=== PATIENT | male | born 1965 | race Caucasian/White ===

== ENCOUNTER 2016-03-29 10:01 | Emergency (ER) | payer MEDICAID ==
[~2016-03-29] VITALS: Ht 177.8 cm; Wt 89.4 kg
[~2016-03-29 10:01] MED LIST: AMITRIPTYLINE25 MG PO; AMOXICILLIN AND1 TA2 PO; ASPIRIN CHILDRE81 MG PO; BACLOFEN20 MG PO; BACTRIM DS 8001 TAB PO; CEPHALEXIN MON500 MG PO; CIPRO 500MG TA500 MG PO; FLAGYL 500MG.500 MG PO; FLEXERIL10 MG PO; GABAPENTIN 600600 MG PO; HEART MED; HEART PILL; HYDROCODONE1 TABLET PO; KEFLEX 500MG.500 MG PO; LORTAB 5/500 501 TAB PO; METOPROLOL25 MG PO; NAPROSYN500 M1 PO; NITROGLYCERIN0.4 MG SL; OMNICEF 300 MG300 MG PO; OXYCODONE15 MG PO; PERCOCET 10 MG1 EACH PO; PERCOCET 325 MG1 TA3 PO; PERCOCET 325 MG1 TA4 PO; PLAVIX75 MG PO; SENNA DOCUSATE1 TAB PO; SIMVASTATIN40 MG PO; SOMA 350MG TAB350 MG PO; TRAZODONE 50MG50 MG PO; ULTRACET 325 MG1 TAB PO; VICODIN 7.5/501 EACH PO; XANAX 1MG TABLET1 MG PO; XANAX1 MG PO
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
--- NOTE | 2016-03-29 11:11 | RADIOLOGY REPORT PS360 ---
KNEE-3 VIEWS-LT HISTORY: Post traumatic pain FALL/INJURY COMPARISON: None FINDINGS: There are moderate osteoarthritic changes involving the medial compartment and patellofemoral joint. Osteophytes are present about the knee joint. No acute fracture or dislocation. No lytic or blastic change. IMPRESSION: 1. No acute fracture. 2. Osteoarthritis
[2016-03-29] MEDS ORDERED: NAPROXEN SODIU500 MG PO (11:21)
[2016-03-29] MEDS ORDERED: WALK1 XX (11:21)
[2016-03-29 11:50] VITALS: BP 112/72
== END 2016-03-29 11:50 | disposition home or self-care (01) ==
LOC: ER 10:01
DX: S86.912A Strain of unspecified muscle(s) and tendon(s) at lower leg level, left leg, initial encounter (principal); I25.10 Atherosclerotic heart disease of native coronary artery without angina pectoris; Z72.0 Tobacco use; W18.2XXA Fall in (into) shower or empty bathtub, initial encounter; Y92.009 Unspecified place in unspecified non-institutional (private) residence as the place of occurrence of the external cause

== ENCOUNTER 2016-08-02 11:23 | Emergency (ER) | payer MEDICAID ==
[~2016-08-02] VITALS: Ht 177.8 cm; Wt 83.9 kg
[~2016-08-02 11:23] MED LIST changes: +NAPROXEN SODIU500 MG PO; +PREDNISONE 20MG20 MG PO; +WALK1 XX
[2016-08-02] MEDS ORDERED: IBUPROFEN800 MG PO (11:45)
[2016-08-02] MEDS ORDERED: FLEXERIL10 MG PO (11:45)
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
[2016-08-02 12:36] VITALS: BP 130/86
--- OUTSIDE RECORDS SUMMARY | 2016-08-09 02:29 | External Medical Summary Rpt ---
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 20 AI AM 02 11 11 D RI 2 1 PH CH AR AR MG MA D CY W TA BL 03 ET 93 8 # 03 93 NA 00 09 09 0 60 30 HU 11 SA Ac BU 59 -0 -0 .0 BB 80 XM ti ME 13 7- 7- 00 AR 43 AN ve TO 67 20 20 D 5 NE 00 11 11 AN DO 1 D IN 50 CU A 0 RR M MG Y PH TA AR BL MA ET CY 52 09 09 0 12 30 HU 11 SA Ac 15 -0 -0 0. BB 80 XM ti 20 7- 7- 00 AR 43 AN ve 21 20 20 0 D 6 40 11 11 AN DO 2 D IN CU A RR M Y PH AR MA CY DI 00 08 08 0 30 30 WI 38 SC Ac AZ 59 -1 -1 .0 LS 13 HO ti EP 15 0- 0- 00 ON 04 LD ve AM 62 20 [address] SHAHID 10 0 UG AN C MG IN C TA BL ET OX 00 08 08 0 90 30 WI 38 SC Ac YC 60 -1 -1 .0 LS 13 HO ti OD 34 0- 0- 00 ON 05 LD ve ON 99 20 20 E [address] AL HC 8 UG AN L C 30 IN C MG TA BL ET ME 29 07 07 0 30 30 WI 37 GO Ac LO 30 -1 -1 .0 LS 84 DO ti XI 00 4- 4- 00 ON 33 FS ve CA 12 20 20 [place] M [address] 15 0 UG AL AN MG IN C TA BL ET DI 00 07 07 0 60 30 WI 37 GO Ac AZ 59 -1 -1 .0 LS 84 DO ti EP 15 4- 4- 00 ON 35 FS ve AM 61 20 20 [place] [address] 0 UG AL MG AN IN TA C BL ET OX 00 07 07 0 12 30 WI 37 GO Ac YC 60 -1 -1 0. LS 84 DO ti OD 34 4- 4- 00 ON 36 FS ve ON 99 20 20 0 [place] E [address] HC 8 UG AL L AN 30 IN C MG TA BL ET IB 53 11 06 5 60 30 EA 19 SA Ac UP 74 -1 -[address] 98 XM ti RO 60 5- 6- 00 SI 94 AN ve FE 46 20 20 DE N 60 10 11 DO 80 5 PH IN 0 AR A MG MA M CY TA BL OF ET CY NT HI AN A OX 00 06 06 90 30 KM 22 GO Ac YC 40 -1 -1 .0 AR 12 DO ti OD 68 4- 4- 00 T 33 FS ve ON 51 20 20 PH 1 KY E 50 11 11 AR HC 1 MA AL L CY AN 15 # MG 48 47 TA BL ET DI 00 06 06 60 30 KM 44 GO Ac AZ 59 -1 -1 .0 AR 47 DO ti EP 15 4- 4- 00 T 53 FS ve AM 62 20 20 PH 7 KY 01 11 11 AR 10 0 MA AL CY AN MG # TA 48 BL 47 ET ME 68 06 06 30 30 KM 68 GO Ac LO 18 -1 -1 .0 AR 20 DO ti XI 00 4- 4- 00 T 04 FS ve CA 50 20 20 PH 6 KY M 20 11 11 AR 15 1 MA AL CY AN MG # TA 48 BL 47 ET OX 10 05 05 12 30 KM 22 WH Ac YC 70 -1 -1 0. AR 12 IT ti OD 20 7- 7- 00 T 11 E ve ON 00 20 20 0 PH 2 GR E 90 11 11 AR EG HC 1 MA OR L CY Y 30 # B MG 48 47 TA BL ET DI 00 05 05 90 30 KM 44 WH Ac AZ 59 -1 -1 .0 AR 47 IT ti EP 15 7 7 00 T 23 E ve AM 62 20 20 PH 7 GR 01 11 11 AR EG 10 0 MA OR CY Y MG # B TA 48 BL 47 ET ME 68 05 05 30 30 KM 68 WH Ac LO 18 -1 -1 .0 AR 19 IT ti XI 00 7 7 T 14 E ve CA 50 20 20 PH 6 GR M 20 11 11 AR EG 15 1 MA OR CY Y MG # B TA 48 BL 47 ET IB 53 11 04 5 60 30 EA 19 SA Ac UP 74 -1 -[address] 98 XM ti RO 60 5 9 00 SI 94 AN ve FE 46 20 20 DE N 60 10 11 DO 80 5 PH IN 0 AR A MG MA M CY TA BL OF ET CY NT HI AN A CY 00 04 04 1 60 20 EA 22 AR Ac CL 37 -1 -[address] 18 NO ti OB 80 9 SI 27 LD ve EN 75 20 20 DE ZA 11 11 11 RI NV 0 PH CH IN AR AR E MA D 10 CY W MG OF TA CY BL NT ET HI AN A OX 00 04 04 0 90 30 HU 11 SA Ac YC 40 -0 -0 .0 BB 69 XM ti OD 68 8 AR 43 AN ve ON 51 20 20 D 8 E 50 11 11 AN DO HC 1 D IN L CU A 15 RR M Y MG PH AR TA MA BL CY ET 00 04 04 0 60 30 HU 11 SA Ac 59 -0 -0 .0 BB 69 XM ti 10 8 8 AR 43 AN ve 82 20 20 D 7 50 11 11 AN DO 1 D IN CU A RR M Y PH AR MA CY ME 68 04 04 5 30 30 HU 11 SA Ac LO 38 -0 -0 .0 BB 69 XM ti XI 20 8 8- 00 AR 43 AN ve CA 05 20 20 D 5 M 10 11 11 AN DO 15 1 D IN CU A MG RR M Y TA PH BL AR ET MA CY AM 00 04 04 0 [address] Ac OX 78 -0 -[address] 01 EP ti IC 12 6 6 SI 80 HE ve IL 61 20 20 DE NS LI 30 11 11 N 5 PH KE 50 AR 0 MA N MG CY C CA OF PS UL CY E NT HI AN A IB 53 11 04 5 60 30 EA 19 SA Ac UP 74 -1 -[address] 98 XM ti RO 60 5- 1- 00 SI 94 AN ve FE 46 20 20 DE N 60 10 11 DO 80 5 PH IN 0 AR A MG MA M CY TA BL OF ET CY NT HI AN A EN 60 03 03 0 12 2 EA 21 GR Ac DO 95 -2 -[address] 88 AY ti CE 10 8- 8- 00 SI 71 ve T 71 20 20 DE RO 10 27 11 11 BE -3 0 PH RT 25 AR B MA MG CY TA OF BL ET CY NT HI AN A 52 03 03 0 90 30 HU 11 SA Ac 15 -1 -1 .0 BB 67 XM ti 20 1- 1- 00 AR 68 AN ve 21 20 20 D 9 40 11 11 AN DO 2 D IN CU A RR M Y PH AR MA CY 00 03 03 0 60 30 HU 11 SA Ac 59 -1 -1 .0 BB 67 XM ti 10 1- 1- 00 AR 69 AN ve 82 20 20 D 0 50 11 11 AN DO 1 D IN CU A RR M Y PH AR MA CY IB 53 11 02 5 60 30 EA 19 SA Ac UP 74 -1 -[address] 98 XM ti RO 60 5- 5- 00 SI 94 AN ve FE 46 20 20 DE N 60 10 11 DO 80 5 PH IN 0 AR A MG MA M CY TA BL OF ET CY NT HI AN A AL 00 02 02 0 90 30 HU 11 SA Ac NV 78 -1 -1 .0 BB 65 XM ti AZ 11 1- 1- 00 AR 66 AN ve OL 07 20 20 D 4 AM 90 11 11 AN DO 1 5 D IN CU A MG RR M Y TA PH BL AR ET MA CY OX 00 01 01 0 90 30 HU 11 SA Ac YC 60 -1 -1 .0 BB 63 XM ti OD 34 4- 4- 00 AR 63 AN ve ON 99 20 20 D 5 E 12 11 11 AN DO HC 1 D IN L CU A 15 RR M Y MG PH AR TA MA BL CY ET AL 00 01 01 0 90 30 HU 11 SA Ac NV 78 -1 -1 .0 BB 63 XM ti AZ 11 4- 4- 00 AR 63 AN ve OL 07 20 20 D 6 AM 90 11 11 AN DO 1 5 D IN CU A MG RR M Y TA PH BL AR ET MA CY IB 53 11 01 5 60 30 EA 19 SA Ac UP 74 -1 -[address] 98 XM ti RO 60 5- 4- 00 SI 94 AN ve FE 46 20 20 DE N 60 10 11 DO 80 5 PH IN 0 AR A MG MA M CY TA BL OF ET CY NT HI AN A ANDERSON 53 12 12 14 7 RI 86 BE Ac LF 74 -1 -1 .0 TE 28 SS ti AM 60 7- 7- 00 33 ON ve ET 27 20 20 AI HO [address] XA 5 PH EP ZO AR HE LE MA N -T CY A MP 03 DS 93 8 TA # BL 03 ET 93 OX 00 12 12 0 90 30 HU 11 SA Ac YC 40 -1 -1 .0 BB 61 XM ti OD 68 0- 0- 00 AR 49 AN ve ON 51 20 20 D 6 E 50 10 10 AN DO HC 1 D IN L CU A 15 RR M Y MG PH AR TA MA BL CY ET OX 53 12 12 24 3 RI 86 AL Ac YC 74 -0 -0 .0 TE 10 LR ti OD 60 5- 5- 00 34 AN ve ON 20 20 20 AI E- 40 10 10 D JR AC 1 PH ET AR CH AM MA AR IN CY LE OP S HE 03 F N 93 10 8 -3 # 25 03 93 CL 63 12 12 21 7 RI 86 BE Ac IN 30 -0 -0 .0 TE 10 SS ti DA 40 5- 5- 00 35 ON ve MY 69 20 20 AI CI [address] N 6 PH EP HC AR HE L MA N 30 CY A 0 MG 03 93 CA 8 PS # UL 03 E 93 ANDERSON 53 11 11 0 14 7 EA 20 SO Ac LF 74 -3 -[address] 19 KA ti AM 60 0- 0- 00 SI 75 N ve ET 27 20 20 DE BA HO 20 10 10 BA XA 5 PH TU ZO AR ND LE MA E -T CY O MP OF DS CY TA NT BL HI ET AN A 00 11 11 0 12 3 EA 20 SO Ac 17 -3 -[address] 19 KA ti 26 0- 0- 00 SI 76 N ve 35 20 20 DE BA 97 10 10 BA 0 PH TU AR ND MA E CY O OF CY NT HI AN A IB 53 11 11 5 60 30 EA 19 SA Ac UP 74 -1 -[address] 98 XM ti RO 60 5- 5- 00 SI 94 AN ve FE 46 20 20 DE N 60 10 10 DO 80 5 PH IN 0 AR A MG MA M CY TA BL OF ET CY NT HI AN A PE 00 11 11 5 60 30 EA 19 SA Ac NT 37 -1 -[address] 98 XM ti OX 80 5- 5- 00 SI 96 AN ve IF 35 20 20 DE YL 70 10 10 DO LI 1 PH IN NE AR A MA M ER CY 40 OF 0 MG CY NT TA HI B AN A AC 00 11 11 0 12 2 EA 19 SO Ac ET 09 -1 -[address] 91 KA ti AM 30 0- 0- 00 SI 39 N ve IN 15 20 20 DE BA OP 00 10 10 BA HE 1 PH TU N- AR ND CO MA E D CY O #3 OF TA BL CY ET NT HI AN A 00 11 11 0 12 4 EA 19 GA Ac 59 -0 -[address] 86 IN ti 10 7- 7- 00 SI 79 EY ve 38 20 20 DE 50 10 10 MT 1 PH CH AR AE MA L CY S OF CY NT HI AN A CE 00 11 11 0 30 10 EA 19 GA Ac PH 09 -0 -[address] 86 IN ti AL 33 7- 7- 00 SI 80 EY ve EX 14 20 20 DE IN 70 10 10 MT 5 PH CH 50 AR AE 0 MA L MG CY S CA OF PS UL CY E NT HI AN A 00 05 05 0 20 5 EA 17 FO Ac 59 -2 -[address] ti 10 3- 3- 00 SI 66 ER ve 34 20 20 DE 90 10 10 JA 1 PH ME AR S MA M CY OF CY NT HI AN A ME 00 05 05 1 60 30 EA 17 CO Ac LO 37 -0 -[address] 46 Y ti XI 81 4- 4- 00 SI 88 SA ve CA 06 20 20 DE MU M 60 10 10 EL 7. 1 PH C 5 AR MG MA CY TA BL OF ET CY NT HI AN A HY 00 05 05 0 30 4 EA [address] 59 -0 -[address] 46 Y ti OC 13 4- 4- 00 SI 89 SA ve OD 20 20 20 DE MU ON 20 10 10 EL -A 1 PH C CE AR TA MA MT CY NO PH OF EN CY 5- NT 32 HI 5 AN A Vital Signs 04-14-2013 17:22 Name Value Interpretat Reference Comment ion Range BP 53 mm[Hg] Diastolic BP Systolic 119 mm[Hg] Heart 65 /min Rate/Pulse O2% 98 % Respiratory 18 /min Rate 04-14-2013 14:13 Name Value Interpretat Reference Comment ion Range BP 75 mm[Hg] Diastolic BP Systolic 120 mm[Hg] Heart 90 /min Rate/Pulse O2% 94 % Respiratory 18 /min Rate 11-14-2012 12:15 Name Value Interpretat Reference Comment ion Range BP 88 mm[Hg] Diastolic BP Systolic 145 mm[Hg] Heart 83 /min Rate/Pulse O2% 98 % Respiratory 20 /min Rate 11-14-2012 12:06 Name Value Interpretat Reference Comment ion Range BP 88 mm[Hg] Diastolic BP Systolic 145 mm[Hg] Heart 80 /min Rate/Pulse O2% 98 % Respiratory 20 /min Rate 11-09-2012 03:00 Name Value Interpretat Reference Comment ion Range BP 68 mm[Hg] Diastolic BP Systolic 109 mm[Hg] Heart 99 /min Rate/Pulse O2% 92 % Respiratory 16 /min Rate 11-09-2012 02:46 Name Value Interpretat Reference Comment ion Range BP 66 mm[Hg] Diastolic BP Systolic 100 mm[Hg] Heart 99 /min Rate/Pulse O2% 92 % Respiratory 16 /min Rate 10-22-2012 22:00 Name Value Interpretat Reference Comment ion Range Body 97.6 [degF] Temperature BP 77 mm[Hg] Diastolic BP Systolic 116 mm[Hg] Heart 91 /min Rate/Pulse Respiratory 18 /min Rate 10-22-2012 07:00 Name Value Interpretat Reference Comment ion Range Body 98.8 [degF] Temperature BP 69 mm[Hg] Diastolic BP Systolic 107 mm[Hg] Heart 80 /min Rate/Pulse O2% 97 % Respiratory 16 /min Rate 10-20-2012 08:13 Name Value Interpretat Reference Comment ion Range Height 180.34 cm Weight 92.080 kg Measured 10-20-2012 06:03 Name Value Interpretat Reference Comment ion Range Body 98.4 [degF] Temperature BP 98 mm[Hg] Diastolic BP Systolic 162 mm[Hg] Heart 78 /min Rate/Pulse O2% 98 % Respiratory 20 /min Rate Weight 00 [oz_av] Measured 07-22-2012 21:10 Name Value Interpretat Reference Comment ion Range Body 98.4 [degF] Temperature BP 82 mm[Hg] Diastolic BP Systolic 116 mm[Hg] Heart 90 /min Rate/Pulse O2% 97 % Respiratory 20 /min Rate Results Labs Lab Lab Date Result Refere Interp Status Commen Order Detail nces retati t Range on COMPREHENSIVE METABOLIC PANEL (04-14-2013 14:10) Glucose 0202-2 114 74-106 complet 014 mg/dL ed Bld-mCn 14:10 c BUN 0202-2 5 mg/dL 7-18 complet Bld-mCn 014 ed c 14:10 Creat 02-02-2 0.8 0.8-1.3 complet SerPl-m 014 mg/dL ed Cnc 14:10 Creat 02-2 159 50-200 complet Cl 014 ML/MIN ed predict 14:10 ed SerPl C-G-vRa te GFR/BSA 02-2 104 Greater complet .pred 014 ML/MIN than ed SerPl 14:10 60 Schwart z-vRate Sodium 02-2 138 136-145 complet SerPl-s 014 mmoL/L ed Cnc 14:10 Potassi 02-2 4.0 3.5-5.1 complet um 014 mmoL/L ed SerPl-s 14:10 Cnc Chlorid 02-2 103 98-107 complet e 014 mmoL/L ed SerPl-s 14:10 Cnc CO2 02-2 29 21.0-32 complet SerPl-s 014 mmoL/L .0 ed Cnc 14:10 Calcium 02-02-2 7.9 8.5-10. complet 014 mg/dL 1 ed SerPl-m 14:10 Cnc Prot 02-02-2 6.9 6.4-8.2 complet SerPl-m 014 gm/dL ed Cnc 14:10 Albumin 02-02-2 3.2 3.4-5.0 complet 014 gm/dL ed SerPl-m 14:10 Cnc Globuli 0202-2 3.7 1.3-3.2 complet n 014 gm/dL ed Ser-mCn 14:10 c Albumin 02-02-2 0.9 UNK 1.1-1.8 complet /Glob 014 ed SerPl-m 14:10 Rto Bilirub 0202-2 0.6 0.2-1.0 complet 014 mg/dL ed SerPl-m 14:10 Cnc AST 02-2 384 U/L 15-37 High complet SerPl-c 014 alert ed Cnc 14:10 ALT 0202-2 745 U/L 12-78 High complet SerPl-c 014 alert ed Cnc 14:10 ALP 02-02-2 170 U/L 50-136 complet SerPl-c 014 ed Cnc 14:10 Ethanol Bld-mCnc (04-14-2013 14:10) Ethanol 02-02-2 0 mg/dL 0-99 complet 014 ed Bld-mCn 14:10 c CBC with AUTO DIFF (04-14-2013 14:10) WBC # 02-02-2 9.4 4.8-10. complet Bld 014 K/MM3 8 ed Auto 14:10 RBC # 02-02-2 4.58 4.6-6.2 complet Bld 014 M/mm3 ed Auto 14:10 Hgb 02-02-2 13.7 14.1-18 complet Bld-mCn 014 g/dL .0 ed c 14:10 Hct Fr 02-02-2 40.4 % 42.0-52 complet Bld 014 .0 ed 14:10 MCV RBC 02-02-2 88.3 fl 82.2-97 complet 014 .8 ed 14:10 MCH RBC 02-02-2 29.9 pg 27-31.2 complet Qn 014 ed Auto 14:10 MEAN 02-02-2 33.9 31.8-35 complet CORPUSC 014 g/dl .4 ed ULAR 14:10 HGB CONC RDW RBC 02-02-2 16.5 % 11.5-17 complet Auto 014 .5 ed 14:10 Platele 02-02-2 201 142-424 complet t Bld 014 K/mm3 ed Ql 14:10 Manual MEAN 02-02-2 7.0 fl 7.4-10. complet PLATELE 014 4 ed T 14:10 VOLUME Granulo 02-02-2 75.5 % 37.0-80 complet cytes 014 .0 ed Fr Bld 14:10 Auto LYMPH % 02-02-2 15.5 % 10-50 complet 014 ed 14:10 Monocyt 02-02-2 5.6 % 1.7-9.3 complet es Fr 014 ed Bld 14:10 Auto Eosinop 02-02-2 3.0 % 0.1-12. complet hil Fr 014 0 ed Bld 14:10 Auto Basophi 02-02-2 0.4 % 0.1-2.0 complet ls Fr 014 ed Bld 14:10 Auto Granulo 02-02-2 7.1 1.3-8.0 complet cytes # 014 K/mm3 ed Bld 14:10 Auto Lymphoc 02-2 1.5 0.7-4.5 complet ytes Fr 014 K/mm3 ed Bld 14:10 Auto Monocyt 02-02-2 0.5 0.1-1.0 complet es # 014 K/mm3 ed Bld 14:10 Auto Eosinop 02-02-2 0.3 0.0-0.4 complet hil # 014 K/mm3 ed Bld 14:10 Auto Basophi 02-2 0.0 0-0.2 complet ls # 014 K/MM3 ed Bld 14:10 Auto COMPREHENSIVE METABOLIC PANEL (11-09-2012 02:10) Glucose 140 74-106 complet 013 mg/dL ed Bld-mCn 02:10 c BUN 7 mg/dL 7-18 complet Bld-mCn 013 ed c 02:10 Creat 1.1 0.8-1.3 complet SerPl-m 013 mg/dL ed Cnc 02:10 ESTIMAT 113 50-200 complet ED 013 ML/MIN ed CREATIN 02:10 INE CLEARAN CE GFR 72 Greater complet (ESTIMA 013 ML/MIN than ed JUICE) 02:10 60 Sodium 144 136-145 complet SerPl-s 013 mmoL/L ed Cnc 02:10 Potassi 3.2 3.5-5.1 complet um 013 mmoL/L ed SerPl-s 02:10 Cnc Chlorid 107 98-107 complet e 013 mmoL/L ed SerPl-s 02:10 Cnc CO2 24 21.0-32 complet SerPl-s 013 mmoL/L .0 ed Cnc 02:10 Calcium 7.8 8.5-10. complet 013 mg/dL 1 ed SerPl-m 02:10 Cnc Prot 8.0 6.4-8.2 complet SerPl-m 013 gm/dL ed Cnc 02:10 Albumin 3.6 3.4-5.0 complet 013 gm/dL ed SerPl-m 02:10 Cnc Globuli 08-30-2 4.4 1.3-3.2 complet n 013 gm/dL ed Ser-mCn 02:10 c Albumin 11-09-2 0.8 UNK 1.1-1.8 complet /Glob 013 ed SerPl-m 02:10 Rto Bilirub 11-09-2 0.3 0.2-1.0 complet 013 mg/dL ed SerPl-m 02:10 Cnc AST 11-09-2 19 U/L 15-37 complet SerPl-c 013 ed Cnc 02:10 ALT 11-09-2 43 U/L 30-65 complet SerPl-c 013 ed Cnc 02:10 ALP 11-09-2 141 U/L 50-136 complet SerPl-c 013 ed Cnc 02:10 Ethanol Bld-mCnc (11-09-2012 02:10) Ethanol 11-09-2 148 0-99 complet 013 mg/dL ed Bld-mCn 02:10 c CBC with AUTO DIFF (11-09-2012 02:10) WBC # 30-2 9.9 4.8-10. complet Bld 013 K/MM3 8 ed Auto 02:10 RBC # 30-2 5.22 4.6-6.2 complet Bld 013 M/mm3 ed Auto 02:10 Hgb 11-09-2 15.0 14.1-18 complet Bld-mCn 013 g/dL .0 ed c 02:10 Hct Fr 11-09-2 46.7 % 42.0-52 complet Bld 013 .0 ed 02:10 MCV RBC 11-09-2 89.4 fl 82.2-97 complet 013 .8 ed 02:10 MCH RBC 11-09-2 28.8 pg 27-31.2 complet Qn 013 ed Auto 02:10 MEAN 11-09-2 32.2 31.8-35 complet CORPUSC 013 g/dl .4 ed ULAR 02:10 HGB CONC RDW RBC 11-09-2 16.4 % 11.5-17 complet Auto 013 .5 ed 02:10 Platele 30-2 390 142-424 complet t Bld 013 K/mm3 ed Ql 02:10 Manual MEAN 30-2 6.9 fl 7.4-10. complet PLATELE 013 4 ed T 02:10 VOLUME Granulo 08-30-2 44.0 % 37.0-80 complet cytes 013 .0 ed Fr Bld 02:10 Auto LYMPH % 08-30-2 45.7 % 10-50 complet 013 ed 02:10 Monocyt 08-30-2 4.7 % 1.7-9.3 complet es Fr 013 ed Bld 02:10 Auto Eosinop 08-30-2 4.6 % 0.1-12. complet hil Fr 013 0 ed Bld 02:10 Auto Basophi 08-30-2 0.9 % 0.1-2.0 complet ls Fr 013 ed Bld 02:10 Auto Granulo 08-30-2 4.4 1.3-8.0 complet cytes # 013 K/mm3 ed Bld 02:10 Auto Lymphoc -30-2 4.5 0.7-4.5 complet ytes Fr 013 K/mm3 ed Bld 02:10 Auto Monocyt 08-30-2 0.5 0.1-1.0 complet es # 013 K/mm3 ed Bld 02:10 Auto Eosinop -30-2 0.5 0.0-0.4 complet hil # 013 K/mm3 ed Bld 02:10 Auto Basophi 08-30-2 0.1 0-0.2 complet ls # 013 K/MM3 ed Bld 02:10 Auto BASIC METABOLIC PANEL (10-21-2012 06:30) Glucose 106 74-106 complet 013 mg/dL ed Bld-mCn 06:30 c BUN 10-21- 13 7-18 complet Bld-mCn 013 mg/dL ed c 06:30 Creat 0.9 0.8-1.3 complet SerPl-m 013 mg/dL ed Cnc 06:30 ESTIMAT 135 50-200 complet ED 013 ML/MIN ed CREATIN 06:30 INE CLEARAN CE GFR 91 Greater complet (ESTIMA 013 ML/MIN than ed JUICE) 06:30 60 Sodium 10-21- 141 136-145 complet SerPl-s 013 mmoL/L ed Cnc 06:30 Potassi 4.4 3.5-5.1 complet um 013 mmoL/L ed SerPl-s 06:30 Cnc Chlorid 108 98-107 complet e 013 mmoL/L ed SerPl-s 06:30 Cnc CO2 -11-2 28 21.0-32 complet SerPl-s 013 mmoL/L .0 ed Cnc 06:30 Calcium 08-11-2 8.1 8.5-10. complet 013 mg/dL 1 ed SerPl-m 06:30 Cnc CBC with AUTO DIFF (10-21-2012 06:30) WBC # 08-11-2 3.2 4.8-10. complet Bld 013 K/MM3 8 ed Auto 06:30 RBC # 08-11-2 4.60 4.6-6.2 complet Bld 013 M/mm3 ed Auto 06:30 Hgb -11-2 12.6 14.1-18 complet Bld-mCn 013 g/dL .0 ed c 06:30 Hct Fr 10-21-2 40.7 % 42.0-52 complet Bld 013 .0 ed 06:30 MCV RBC 10-21-2 88.4 fl 82.2-97 complet 013 .8 ed 06:30 MCH RBC 10-21-2 27.4 pg 27-31.2 complet Qn 013 ed Auto 06:30 MEAN 10-21-2 31.0 31.8-35 complet CORPUSC 013 g/dl .4 ed ULAR 06:30 HGB CONC RDW RBC 10-21-2 14.9 % 11.5-17 complet Auto 013 .5 ed 06:30 Platele -11-2 270 142-424 complet t Bld 013 K/mm3 ed Ql 06:30 Manual MEAN 10-21-2 6.9 fl 7.4-10. complet PLATELE 013 4 ed T 06:30 VOLUME Granulo 10-21-2 52.0 % 37.0-80 complet cytes 013 .0 ed Fr Bld 06:30 Auto LYMPH % -11-2 36.4 % 10-50 complet 013 ed 06:30 Monocyt -11-2 6.9 % 1.7-9.3 complet es Fr 013 ed Bld 06:30 Auto Eosinop -11-2 4.1 % 0.1-12. complet hil Fr 013 0 ed Bld 06:30 Auto Basophi 11-2 0.7 % 0.1-2.0 complet ls Fr 013 ed Bld 06:30 Auto Granulo 08-11-2 1.7 1.3-8.0 complet cytes # 013 K/mm3 ed Bld 06:30 Auto Lymphoc 10-21-2 1.2 0.7-4.5 complet ytes Fr 013 K/mm3 ed Bld 06:30 Auto Monocyt 10-21-2 0.2 0.1-1.0 complet es # 013 K/mm3 ed Bld 06:30 Auto Eosinop 10-21-2 0.1 0.0-0.4 complet hil # 013 K/mm3 ed Bld 06:30 Auto Basophi 10-21-2 0.0 0-0.2 complet ls # 013 K/MM3 ed Bld 06:30 Auto COMPREHENSIVE METABOLIC PANEL (10-20-2012 06:20) Glucose 10-20- 117 74-106 complet 013 mg/dL ed Bld-mCn 06:20 c BUN 8 mg/dL 7-18 complet Bld-mCn 013 ed c 06:20 Creat 0.9 0.8-1.3 complet SerPl-m 013 mg/dL ed Cnc 06:20 ESTIMAT 140 50-200 complet ED 013 ML/MIN ed CREATIN 06:20 INE CLEARAN CE GFR 91 Greater complet (ESTIMA 013 ML/MIN than ed JUICE) 06:20 60 Sodium 10-20- 142 136-145 complet SerPl-s 013 mmoL/L ed Cnc 06:20 Potassi 4.0 3.5-5.1 complet um 013 mmoL/L ed SerPl-s 06:20 Cnc Chlorid 106 98-107 complet e 013 mmoL/L ed SerPl-s 06:20 Cnc CO2 10-20- 28 21.0-32 complet SerPl-s 013 mmoL/L .0 ed Cnc 06:20 Calcium 10-20-2 8.9 8.5-10. complet 013 mg/dL 1 ed SerPl-m 06:20 Cnc Prot 10-20-2 7.6 6.4-8.2 complet SerPl-m 013 gm/dL ed Cnc 06:20 Albumin 10-20- 3.6 3.4-5.0 complet 013 gm/dL ed SerPl-m 06:20 Cnc Globuli 4.0 1.3-3.2 complet n 013 gm/dL ed Ser-mCn 06:20 c Albumin 2 0.9 UNK 1.1-1.8 complet /Glob 013 ed SerPl-m 06:20 Rto Bilirub 2 0.2 0.2-1.0 complet 013 mg/dL ed SerPl-m 06:20 Cnc AST 22 U/L 15-37 complet SerPl-c 013 ed Cnc 06:20 ALT 55 U/L 30-65 complet SerPl-c 013 ed Cnc 06:20 ALP 132 U/L 50-136 complet SerPl-c 013 ed Cnc 06:20 Amylase SerPl-cCnc (10-20-2012 06:20) Amylase 10-20- 97 U/L 25-115 complet 013 ed SerPl-c 06:20 Cnc LIPASE (10-20-2012 06:20) LIPASE 216 U/L 73-393 complet 013 ed 06:20 CBC with AUTO DIFF (10-20-2012 06:20) WBC # 10-2 5.8 4.8-10. complet Bld 013 K/MM3 8 ed Auto 06:20 RBC # 10-2 5.23 4.6-6.2 complet Bld 013 M/mm3 ed Auto 06:20 Hgb 10-20-2 14.5 14.1-18 complet Bld-mCn 013 g/dL .0 ed c 06:20 Hct Fr 10-20- 45.3 % 42.0-52 complet Bld 013 .0 ed 06:20 MCV RBC 10-20-2 86.7 fl 82.2-97 complet 013 .8 ed 06:20 MCH RBC 10-2 27.8 pg 27-31.2 complet Qn 013 ed Auto 06:20 MEAN 10-20-2 32.1 31.8-35 complet CORPUSC 013 g/dl .4 ed ULAR 06:20 HGB CONC RDW RBC 10-20-2 14.8 % 11.5-17 complet Auto 013 .5 ed 06:20 Platele 361 142-424 complet t Bld 013 K/mm3 ed Ql 06:20 Manual MEAN 08-10-2 6.8 fl 7.4-10. complet PLATELE 013 4 ed T 06:20 VOLUME Granulo 08-10-2 54.8 % 37.0-80 complet cytes 013 .0 ed Fr Bld 06:20 Auto LYMPH % 08-10-2 35.1 % 10-50 complet 013 ed 06:20 Monocyt 08-10-2 6.5 % 1.7-9.3 complet es Fr 013 ed Bld 06:20 Auto Eosinop 08-10-2 2.8 % 0.1-12. complet hil Fr 013 0 ed Bld 06:20 Auto Basophi 08-10-2 0.7 % 0.1-2.0 complet ls Fr 013 ed Bld 06:20 Auto Granulo 08-10-2 3.2 1.3-8.0 complet cytes # 013 K/mm3 ed Bld 06:20 Auto Lymphoc 08-10-2 2.0 0.7-4.5 complet ytes Fr 013 K/mm3 ed Bld 06:20 Auto Monocyt 08-10-2 0.4 0.1-1.0 complet es # 013 K/mm3 ed Bld 06:20 Auto Eosinop 08-10-2 0.2 0.0-0.4 complet hil # 013 K/mm3 ed Bld 06:20 Auto Basophi 08-10-2 0.0 0-0.2 complet ls # 013 K/MM3 ed Bld 06:20 Auto URINALYSIS/COMPLETE (10-20-2012 06:10) URINE 08-10-2 YELLOW YELLOW complet COLOR 013 ed 06:10 URINE 08-10-2 CLEAR CLEAR complet APPEARA 013 ed NCE 06:10 URINE 08-10-2 NEGATIV NEG complet GLUCOSE 013 E ed - 06:10 DIPSTIC K URINE 08-10-2 NEGATIV NEG complet BILIRUB 013 E ed IN - 06:10 DIPSTIC K URINE 08-10-2 NEGATIV NEG complet KETONE 013 E mg/dL ed 06:10 URINE 08-10-2 1.025 1.005-1 complet SPECIFI 013 UNK .030 ed C 06:10 GRAVITY URINE 08-10-2 NEGATIV NEG complet BLOOD 013 E ed 06:10 URINE 08-10-2 6.0 UNK 5.0-8.5 complet PH 013 ed 06:10 URINE 10-20-2 NEGATIV NEG complet PROTEIN 013 E mg/dL ed - 06:10 DIPSTIC K URINE 10-20-2 0.2 NEG complet UROBILI 013 E.U./dL ed NOGEN - 06:10 DIPSTIC K URINE 10-20-2 NEGATIV NEG complet NITRATE 013 E ed - 06:10 DIPSTIC K URINE 10-20-2 NEGATIV NEG complet LEUK 013 E ed ESTERAS 06:10 E URINE 10-20-2 3-5 O complet WBC 013 wbc/hpf ed 06:10 URINE 10-20-2 TRACE NONE complet AMORPH 013 ed SEDIMEN 06:10 T Procedures Procedure DOS Code Location Performer Comment THERAPEUT [id number] [facility] PROP[facility]LAC [facility] INC TIC/DX INJECTION SUBQ/IM RADEX 37416 ESTEV[facility] BARRETO SPINE 7 [facility] LUMBOSACR INC INC AL MINIMUM 4 VIEWS THERAPEUT 11680 [facility] IC [facility] PROPHYLAC INC INC TIC/DX INJECTION SUBQ/IM THERAPEUT 93744 [facility] IC [facility] PROPHYLAC INC INC TIC/DX INJECTION SUBQ/IM RADIOLOGI 22494 [facility]RE[facility] C 7 [facility] EXAMINATI INC INC ON KNEE 3 VIEWS DRUG TST [id number] [facility] BARRETO PRESUMP;C 6 [facility] PBL BEING INC INC READ DC OPT OBV ONLY COMPREHEN 47769 ESTEV[facility] BARRETO SIVE 6 [facility] [place] [address] [facility]RE[facility] INFUSION 6 [facility] THERAPY/P INC INC ROPHYLAXI S /DX 1ST TO 1 HR GROUND A0425 [facility]OCH[facility]L [facility] MILEAGE 6 [facility] PER SERVICE SERVICE STATUTE MILE BLOOD 26920 [facility]RETO COUNT 6 [facility] COMPLETE INC INC AUTO&AUTO DIFRNTL WBC COLLECTIO 37147 ESTEVAN BARRETO N VENOUS 6 [facility] BLOOD INC INC VENIPUNCT URE AMB A0427 [facility]L [facility] SERVICE 6 [facility] ALS SERVICE SERVICE EMERGENCY TRANSPORT LEVEL 1 AMB A0427 [facility] SERVICE 5 AMBULANCE AMBULANCE ALS SERVICE SERVICE EMERGENCY TRANSPORT LEVEL 1 GROUND A0425 [facility] MILEAGE 5 AMBULANCE AMBULANCE PER SERVICE SERVICE STATUTE MILE GROUND A0425 [facility] MILEAGE 5 AMBULANCE AMBULANCE PER SERVICE SERVICE STATUTE MILE AMB A0427 [facility] SERVICE 5 AMBULANCE AMBULANCE ALS SERVICE SERVICE EMERGENCY TRANSPORT LEVEL 1 HOS BED E0260 [facility] ALTAGRACIA SEMI-ELEC 5 HOME HOME W/ANY MEDICAL MEDICAL TYPE SIDE EQUIPME EQUIPME RAIL W/MATTRSS HOS BED E0260 ALTAGRACIA ALTAGRACIA SEMI-ELEC 5 HOME HOME W/ANY MEDICAL MEDICAL TYPE SIDE EQUIPME EQUIPME RAIL W/MATTRSS HOS BED E0260 ALTAGRACIA ALTAGRACIA SEMI-ELEC 5 HOME HOME W/ANY MEDICAL MEDICAL TYPE SIDE EQUIPME EQUIPME RAIL W/MATTRSS RADIOLOGI 37539 [facility] 5 MEDICAL NATALIE EXAMINATI IMAGING ON CHEST ASS SINGLE VIEW FRONTAL HOS BED E0260 LATAGRACIA ALTAGRACIA SEMI-ELEC 5 HOME HOME W/ANY MEDICAL MEDICAL TYPE SIDE EQUIPME EQUIPME RAIL W/MATTRSS AMBULANCE A0429 [facility] SERV[facility] 5 CO AMB CO AMB BLS SERVICE SERVICE EMERGENCY TRANSPORT GROUND A0425 [facility] MILEAGE 5 CO AMB CO AMB PER SERVICE SERVICE STATUTE MILE HOS BED E0260 AL[facility]IA ALTAGRACIA SEMI-ELEC 5 HOME HOME W/ANY MEDICAL MEDICAL TYPE SIDE EQUIPME EQUIPME RAIL W/MATTRSS HOS BED E0260 ALTAGRACIA ALTAGRACIA SEMI-ELEC 5 HOME HOME W/ANY MEDICAL MEDICAL TYPE SIDE EQUIPME EQUIPME RAIL W/MATTRSS HOS BED E0260 ALTAGRACIA ALTAGRACIA SEMI-ELEC 5 HOME HOME W/ANY MEDICAL MEDICAL TYPE SIDE EQUIPME EQUIPME RAIL W/MATTRSS HOS BED E0260 ALTAGRACIA ALTAGRACIA SEMI-ELEC 5 HOME HOME W/ANY MEDICAL MEDICAL TYPE SIDE EQUIPME EQUIPME RAIL W/MATTRSS LIGHTWEIG K0003 [facility] 5 MEDICAL MEDICAL WHEELCHAI EQUIPMENT EQUIPMENT R SERVICE G0151 [facility] AGENCY AGENCY HLTH/HOSP ICE EA 15 MIN DIRECT G0154 [facility] 4 HOME HOME [facility] HE[facility] SERVICES AGENCY AGENCY HH/HOSPIC E EA 15 MIN SERVICE G0151 [facility] 4 HOME HOME [facility] HOME AGENCY AGENCY HLTH/HOSP ICE EA 15 MIN HOS BED E0260 ALTAGRACIA FRIAS SEMI-ELEC 4 HOME HOME W/ANY MEDICAL MEDICAL TYPE SIDE EQUIPME EQUIPME RAIL W/MATTRSS LIGHTWEIG K0003 [facility] HT 4 MEDICAL MEDICAL WHEELCHAI EQUIPMENT EQUIPMENT R DIRECT G0154 [facility] 4 HOME HOME [facility] AGENCY AGENCY HH/HOSPIC E EA 15 MIN SERVICE G0151 [facility] 4 HOME HOME [facility] HOME AGENCY AGENCY HLTH/HOSP ICE EA 15 MIN KNEE L1845 [facility] ORTHOSIS 4 ORTHOPEDI ORTHOPEDI DOUBLE CS CS UPRIGHT THIGH & CALF PREFAB ADDITION L2397 [facility] D[facility] LOWER 4 ORTHOPEDI ORTHOPEDI EXTREM CS CS ORTHOTIC SUSPENSIO N SLEEVE DIRECT G0154 [facility] SKILL 4 HOME HOME [facility] AGENCY AGENCY HH/HOSPIC E EA 15 MIN GEL/GEL-L E0185 ALTAGRACIA FRIAS ELANA PRSS 4 HOME HOME PAD MEDICAL MEDICAL MATTRSS EQUIPME EQUIPME STD ZACHARY&WDTH HOS BED E0260 ALTAGRACIA FRIAS SEMI-ELEC 4 HOME HOME W/ANY MEDICAL MEDICAL TYPE SIDE EQUIPME EQUIPME RAIL W/MATTRSS MNL E0971 [facility] WHEELCHAI 4 MEDICAL MEDICAL R EQUIPMENT EQUIPMENT ACCESSORY ANTI-TIPP ING DEVC EACH [facility]IGHT[facility] K0003 [facility] HT 4 MEDICAL MEDICAL WHEELCHAI EQUIPMENT EQUIPMENT R GENERAL E2601 [facility] WHLCHAIR 4 MEDICAL MEDICAL SEAT EQUIPMENT EQUIPMENT CUSHN WIDTH < 22 IN DEPTH WHLCHAIR E0978 [facility] ACSS PSTN 4 MEDICAL MEDICAL EQUIPMENT EQUIPMENT BELT/SFTY BELT/PELV STRAP EA SBSQ 14459 [facility] 4 MEDICAL ERIC CARE/DAY SERV 25 FOUNDATIO MINUTES N SBSQ 96792 [facility] 4 MEDICAL ERIC CARE/DAY SERV 25 FOUNDATIO MINUTES N SBSQ [address] [place] [address] MEDICAL ERIC CARE/DAY SERV 25 FOUNDATIO MINUTES N SBSQ 17662 [place] [address] MEDICAL ERIC CARE/DAY SERV 25 FOUNDATIO MINUTES N SBSQ 07859 [place] [address] MEDICAL ERIC CARE/DAY SERV 25 FOUNDATIO MINUTES N SBSQ 93681 [place] [address] MEDICAL ERIC CARE/DAY SERV 25 FOUNDATIO MINUTES N SBSQ 89515 [place] [address] MEDICAL ERIC CARE/DAY SERV 25 FOUNDATIO MINUTES N SBSQ 82307 [place] [address] MEDICAL NAN CARE/DAY SERV 25 FOUNDATIO MINUTES N SBSQ [address]3459 [place] [address] MEDICAL NAN CARE/DAY SERV 25 FOUNDATIO MINUTES N SBSQ 52034 [place] [address] MEDICAL ERIC CARE/DAY SERV 25 FOUNDATIO MINUTES N SBSQ 45717 [place] [address] MEDICAL ERIC CARE/DAY SERV 25 FOUNDATIO MINUTES N SBSQ 97952 [place] [address] MEDICAL ERIC CARE/DAY SERV 25 FOUNDATIO MINUTES N SBSQ 11705 [place] [address] MEDICAL ERIC CARE/DAY SERV 25 FOUNDATIO MINUTES N RADEX 13399 [facility] 4 MEDICAL Y JUS COMPLETE SERV FOUNDATIO N SBSQ 78425 [place] [address] MEDICAL ERIC CARE/DAY SERV 25 FOUNDATIO MINUTES N SBSQ [address]9638 [place] [address] MEDICAL JACQUELINE CARE/DAY SERV 15 FOUNDATIO MINUTES N SBSQ [address]9834 [place] [address] MEDICAL JACQUELINE CARE/DAY SERV 25 FOUNDATIO MINUTES N SBSQ 76250 [place] [address] MEDICAL ERIC CARE/DAY SERV 25 FOUNDATIO MINUTES N SBSQ 42876 [facility] 4 MEDICAL NAN CARE/DAY SERV 25 FOUNDATIO MINUTES N SBSQ 27364 [facility] 4 MEDICAL ERIC CARE/DAY SERV 25 FOUNDATIO MINUTES N SBSQ 91971 [facility] 4 MEDICAL ERIC CARE/DAY SERV 25 FOUNDATIO MINUTES N SBSQ 42363 [facility] 4 MEDICAL ERCI CARE/DAY SERV 25 FOUNDATIO MINUTES N SBSQ 51777 [facility] 4 MEDICAL LUZMA CARE/DAY SERV 25 FOUNDATIO MINUTES N INITIAL 66271 [facility] 4 MEDICAL LUZMA CARE/DAY SERV 70 FOUNDATIO MINUTES N RADEX 21157 [facility] [place] MAT ABDOMEN 1 4 RADIOLOGY ANTEROPOS [facility] 12394 [place] [facility] DISCHARGE 4 MEDICAL CACHORRO DAY SERV MANAGEMEN FOUNDATIO T 30 N MIN/< DUP-SCAN 64022 [place] ENDEAN XTR VEINS 4 MEDICAL CAROL COMPLETE SERV FOUNDATIO BILATERAL N STUDY SBSQ 47730 [facility] 4 NURSE CARE/DAY PRACTITIO 15 NER GR MINUTES RADEX 74610 [place] MONTGOMER ANKLE 4 MEDICAL Y JUS COMPLETE SERV MINIMUM 3 FOUNDATIO VIEWS N RADIOLOGI 22703 [place] TOM C 4 MEDICAL LINUS EXAMINATI SERV ON CHEST FOUNDATIO SINGLE N [place]IEW FRONT[place] INITIAL 62240 [place] HUMPHREY INPATIENT 4 MEDICAL JACQUELINE CONSULT SERV NEW/ESTAB FOUNDATIO PT [address] THORAX [address] [place] JOE W/O 4 MEDICAL LINUS CONTRAST SERV MATERIAL FOUNDATIO N SBSQ 53576 [facility] 4 NURSE CARE/DAY PRACTITIO 25 NER GR MINUTES RADIOLOGI 64584 [place] RONI C 4 MEDICAL AYA MAR EXAMINATI SERV ON CHEST FOUNDATIO S[place]ONTAL RADIOLOGI 61089 [place] JACYK C 4 MEDICAL AYA MAR EXAMINATI SERV ON CHEST FOUNDATIO SINGLE N VIEW FRONTAL RADEX 20761 [place] DISANTIS ESOPHAGUS 4 MEDICAL SHAWN SERV FOUNDATIO N RADIOLOGI 27622 [place] NURIA BETY C 4 MEDICAL EXAMINATI SERV ON CHE[place] [address] [place] KWAN SINGHA THORACIC 4 MEDICAL SPINE W/O SERV CONTRAST FOUNDATIO MATERIAL N RADIOLOGI 44534 [place] NURIA BTEY C 4 MEDICAL EXAMINATI SERV ON CHE[place] [address] [place] [facility] ANGIOGRAP 4 MEDICAL ADR [place] [address] [place] KWAN KWA ANGIOGRAP 4 MEDICAL HY NECK SERV W/CONTRAS [place]AT[place] T/[place] [address] [place] [facility] ANGIOGRAP 4 MEDICAL ADR HY CHEST SERV W/CONTRAS [place]AT[place] T/[place] [address] [place] KW[place] KWA CERVICAL 4 MEDICAL SPINE W/[place] [address] [place] ABDOMEN & 4 MEDICAL ADR PELVIS SERV W/[place] [address] [place] ANGIOGRAP 4 MEDICAL HY HEAD SERV W/CONTRAS FOUNDATIO T/NONCONT N [place] LUMBAR 15497 [place] KWAN SINGHA SPINE 4 MEDICAL W/O SERV CONTRAST FOUNDATIO MATERIAL N RADEX 36262 [place] K[place] BETY SHOULDER 4 MEDICAL COMPLETE SERV MINIMUM 2 FOUNDATIO VIEWS N RADEX 71105 [place] [facility] SCAPULA 4 MEDICAL COMPLETE SERV FOUNDATIO N INSERTION 3404 [place] [address] Y Y SCRIPPS [facility] AL CATHETER FOR DRAINAGE ARTERIAL 3891 [place] [address] Y [facility] ECG [address]10 [place] HA CHI ROUTINE 4 MEDICAL ECG SERV W/LEAST FOUNDATIO 12 LDS N I&R ONLY AMB A0427 [facility] SERVICE 4 AMBULANCE AMBULANCE ALS SERVICE SERVICE EMERGENCY TRANSPORT LEVEL 1 RADIOLOGI 34009 [place] [facility] 4 MEDICAL NATALIE EXAMINATI IMAGING ON PELVIS ASS 1/2 VIEWS GROUND A0425 [facility] MILEAGE 4 AMBULANCE AMBULANCE PER SERVICE SERVICE STATUTE MILE [facility] 88686 [facility] MARIAN[facility] PHYS SVCS 4 Y OF AUTHJ ANNY DEVIJ HOSPI STANDARD REPRT RADEX 08035 [place] KATELYN JAM ABDOMEN 1 4 MEDICAL SERV ANTEROPOS FOUNDATIO TERIOR N VIEW RADIOLOGI 07200 ANNY PATRICE C 4 MEDICAL NATALIE EXAMINATI IMAGING ON CHEST ASS SINGLE VIEW FRONTAL RADIOLOGI 77322 ANNY PATRICE C 4 MEDICAL NATALIE EXAMINATI IMAGING ON CHEST ASS SINGLE VIEW FRONTAL GROUND A0425 [facility] MILEAGE 4 AMBULANCE AMBULANCE PER SERVICE SERVICE STATUTE MILE AMB A0427 [facility] SERVICE 4 AMBULANCE AMBULANCE ALS SERVICE SERVICE EMERGENCY TRANSPORT LEVEL 1 SMPL 65130 [facility] REPAIR 3 [facility] SCALP/NEC INC INC K/AX/KAVEH T/TRUNK 2.6-7.5CM LEVEL III 77153 [facility] MAR LINUS SURG 3 ZACH & PATHOLOGY MARGIILI GROSS&LINUS ROSCOPIC EXAM HOSPITAL 06514 [facility] DISCHARGE 3 МАРИЯ МАРИЯ DAY MANAGEMEN T 30 MIN/< ANES 28057 COMMUNITY TI INTRAPERI 3 ANESTH MATIAS TONEAL OF THE UPPER BLUE ABDOMEN W/LAPS NOS LAPAROSCO 62485 [facility] PY SURG 3 PHYSICIAN DANIELLE CHOLECYST S GROUP ECTOMY LAPAROSCO 5123 [facility]RE[facility] PIC 3 [facility] CHOLE[facility] INC INC ECTOMY SBSQ 37357 [facility] 3 JR HSIEH МАРИЯ CARE/DAY 25 MINUTES INITIAL 66660 [facility] INPATIENT 3 PHYSICIAN DANIELLE CONSULT S GROUP NEW/ESTAB PT 40 MIN 3D 53075 ANNY PATRICE RENDERING 3 MEDICAL NATALIE IMAGING W/INTERP& ASS POSTPROC DIFF WORK STATION AMBULANCE A0429 [facility] SERVICE 3 AMBULANCE AMBULANCE BLS SERVICE SERVICE EMERGENCY TRANSPORT GROUND A0425 [facility] AMBULANCE PER SERVICE SERVICE STATUTE MILE INITIAL 46055 [facility] 3 JR HSIEH МАРИЯ CARE/[place] [address] [place] [address] [place] PAT[facility]ICE ABDOMEN & 3 MEDICAL NATALIE PELVIS IMAGING W/O ASS CONTRAST MATERIAL ECG 66939 [facility] LOWE JR ROUTINE 3 [facility] W/LEAST P 12 LDS I&R ONLY SIMPLE 58979 [facility] REPAIR 3 [facility] F/E/E/N/L INC INC /M 2.6CM-5.0 CM AMBULANCE A0429 [facility] SERVICE 3 AMBULANCE AMBULANCE BLS SERVICE SERVICE EMERGENCY TRANSPORT GROUND A0425 [facility] MILEAGE 3 AMBULANCE AMBULANCE PER SERVICE SERVICE STATUTE MILE RADIOLOGI 82293 [facility] [place] MAT C 2 RADIOLOGY EXAMINATI ON CHEST SINGLE VIEW FRONTAL OPHTH 09600 [facility] MEDICAL 2 XM&EVAL COMPRE NEW PT 1/> [place] [address] [facility] BLOOD/URI 2 [facility] C ACID INC INC COMPREHEN 59174 [facility] SIVE 2 [facility] METABOLIC INC INC PANEL BLOOD 32965 [facility] COUNT 2 [facility] COMPLETE INC INC AUTO&AUTO DIFRNTL WBC SEDIMENTA 19716 [facility] TINIRAV RATE 2 [facility] RBC INC INC NON-AUTOM ATED INITIAL 87692 [facility] 1 [facility] CARE/DAY INTER[place] [address] [place] [address] [facility] ABDOMEN & 1 MEDICAL MEDICAL PELVIS IMAGING IMAGING W/CONTRAS ASS ASS T MATERIAL INITIAL 06974 [place] RAMOS NIDHI INPATIENT 1 MEDICAL CONSULT SERV NEW/ESTAB FOUNDATIO PT 80 MIN 3D 80311 [facility] RENDERING 1 MEDICAL MEDICAL IMAGING IMAGING W/INTERP& ASS ASS POSTPROC DIFF WORK STATION 3D 15983 [facility] RENDERING 1 [facility] INC INC W/INTERP& POSTPROC DIFF WORK [facility]ATION [facility] G0378 [facility] OBSERVATI 1 [facility] [place] [address] [facility] INFUSION 1 [facility] THERAPY INC INC PROPHYLAX IS/DX EA HOUR RADEX ABD 47796 [facility] COMPL 1 [facility] AQT ABD INC INC W/S/E/D VIEWS [address] [place] [address] [facility] ABDOMINAL 1 [facility] REAL INC INC TIME W/[place] [address] [facility] AMYLASE 1 [facility] INC INC CREATINE 07185 [facility] KINASE MB 1 [facility] FRACTION INC INC ONLY COMPREHEN 05566 [facility] SIVE 1 [facility] [place] [address] [facility] ABDOMEN & 1 [facility] PELVIS [place] [address] [facility] INFUSION 1 [facility] THERAPY/P INC INC ROPHYLAXI S /DX 1ST TO 1 HR CREATINE 68024 [facility] KINASE 1 [facility] [place] [address] [facility] LIPASE 1 [facility] INC INC INITIAL 29328 [place] [facility] OBSERVATI 1 [facility] ON INTERNAL CARE/DAY MED 30 MINUTES BLOOD 32253 [facility] COUNT 1 [facility] COMPLETE INC INC AUTO&[place] [address] [facility] TROPONIN 1 [facility] QUANTITAT INC INC TONY HEPATITIS 23532 LAB KATIUSKA LAB KATIUSKA C 1 RAMÓN RAMÓN ANTIBODY HOLDINGS HOLDINGS ECG 51211 INTERNAL BARILLAS ROUTINE [address] ECG ASSOCIATE W/LEAST S 12 LDS I&R ONLY RADIOLOGI 00054 [facility] [place] NICOLEMANESH C 1 RADIOLOGY SHA EXAMINATI ON CHEST SINGLE VIEW FRONTAL RADIOLOGI 67404 [facility] [place] SANTIAGOE C 1 RADIOLOGY LD A EXAMINATI [place] CHEST [place] PRQ 72252 MANUELITO MONTES TRANSLUMI 1 [facility] CORONARY PSC MECHANICL THROMBECT JULIEN TCAT PLMT 40428 NEW ALCONRAJ 1 [facility] NARY PSC STENT PRQ 1 VESSEL CATH PLMT 36811 NEW RERAVIJ L HRT & 1 [facility] W/NJX & PSC ANGIO IMG S&I ECG 57471 NEW ALEGRIA ROUTINE 1 [facility] CLINIC W/LEAST PSC 12 LDS I&[place] [address] [facility] RE[facility] 1 [facility] K/AX/KAVEH T/TRUNK 2.6-7.5CM THERAPEUT 73485 [facility] TIC/DX INJECTION SUBQ/[place] [address] [facility] HEAD/BRAI 1 [facility] N W/O INC INC CONTRAST MATERIAL CLOSURE 8659 [facility] SKIN&SUBC 1 [facility] UTANEOUS INC INC TISSUE OTHER SITES [facility] 77401 SARWAT WEHRMAN REPAIR 1 EMERGENCY III МАРИЯ SCALP/NEC SERVICES K/AX/KAVEH T/TRUNK 2.6-7.5CM 3D 04798 [facility] RENDERING 1 [facility] W/INTERP INC INC & [place] 3D 54067 [facility] RENDERING 1 [facility] W/INTERP INC INC & POSTPROCE SS SUPERVISI ON MRI 13367 [facility] SPINAL 1 [facility] CANAL INC INC LUMBAR W/O CONTRAST [place]ERIAL [place] LUMBAR 72904 [place] PAT[facility]ICE SPINE 1 MEDICAL NATALIE W/O IMAGING CONTRAST ASS MATERIAL RADEX 08674 [facility] SPINE 1 [facility]OS[facility] LUMBOSACR INC INC AL MINIMUM 4 VIEWS PUNCTURE 17605 [facility] PETTEY ASPIRATIO 1 PHYSICIAN JAM N ABSCESS S GROUP HEMATOMA BULLA/CYS T KNEE L1830 [facility] ORTHOSIS 1 IMMOBLIZE R CANVAS LONGTUDNL PREFAB RADIOLOGI 13534 [facility] PATRICE C 1 MEDICAL NATALIE EXAMINATI IMAGING ON KNEE 3 ASS VIEWS CRTCHS E0114 [facility] UNDARM 1 OTH THAN WOOD PAIR PAD TIP&HNDGR IP MRI 93761 TONY C PATRICE SPINAL 0 PATRICE NATALIE CANAL LUMBAR W/O CONTRAST MATERIAL MRI 83720 TON[facility] C PATRICE SPINAL 0 PATRICE NATALIE CANAL THORACIC W/O CONTRAST MATRL 3D 76568 TONY C PATRICE RENDERING 0 PATRICE NATALIE W/INTERP & [place] [address] EST[facility] BLOOD/URI 0 [facility] C ACID INC INC COMPREHEN 17873 [facility] SIVE 0 [facility] METABOLIC INC INC PANEL SEDIMENTA 48440 [facility] TINIRAV RATE 0 [facility] RBC INC INC NON-AUTOM ATED BLOOD 49669 [facility] YOUNGER COUNT 0 [facility] ADULT DAY COMPLETE INC CTR #2 AUTO&AUTO DIFRNTL WBC LIPID 22655 [facility] PANEL 0 [place] [address] [facility] THYROID 0 [facility] STIMULATI INC INC NG [facility] 56007 [facility] DISCHARGE 0 [facility] DAY INTERNAL MANAGEMEN MED T 30 MIN/< INCISION 80616 [facility] GHOTRA JR & 0 VEGA VEGA DRAINAGE ABSCESS COMPLICAT [place] [address] CHIPPS PLATA SURG 0 ZACH & DREW PATHOLOGY MARGIILIKELLY GROSS&LINUS ROSCOPIC EXAM ANES 12748 [facility] INTEG 0 ANESTH EXTREMITI OF THE ES ANT BLUE TRUNK & PERINEUM NOS SBSQ 64704 [facility] CARE/DAY INTERNAL 25 MED MINUTES OTH 8604 [facility]RETO INCISION 0 [facility] W/DRAINAG INC INC E SKIN&SUBC UTANEOUS TISSUE INITIAL 21368 [facility] 0 [facility] CARE/DAY INTERNAL 50 MED MINUTES INITIAL 18978 [facility] 0 VEGA VEGA CARE/DAY 70 MINUTES SUSCEPTIB 58951 [facility] LTY STDY 0 [facility] ANTIMICRB INC INC IAL MICRO/AGA R DILUTJ CUL BACT 35800 [facility] XCPT 0 [facility] URINE INC INC BLOOD/STO OL AEROBIC ISOL CUL BACT 13732 [facility] AEROBIC 0 [facility] ADDL INC INC METHS DEFINITIV E EA ISOL INCISION 39754 SARWAT POLKShai BAB & 0 EMERGENCY DRAINAGE SERVICES ABSCESS SIMPLE/SI NGLE OTH 8604 [facility] INCISION 0 [facility] W/DRAINAG INC INC E SKIN&SUBC UTANEOUS TISSUE CLOSURE 8659 [facility] BARRETO SKIN&SUBC 0 [facility] UTANEOUS INC INC TISSUE OTHER SITES SIMPLE 93328 SARWAT JUAN CARLOS REPAIR 0 EMERGENCY LINUS SCALP/NEC SERVICES K/AX/KAVEH T/TRUNK 2.5CM/< RADEX 16849 [facility] HAND 0 [facility] MINIMUM 3 INC INC VIEWS RADEX 75498 [facility] BARRETO RIBS UNI 0 [facility] W/POSTERO INC INC ANT CH MINIMUM [address] [place] [address] [facility] THORACIC 0 REGIONAL REGIONAL SPINE W/O MEDICAL MEDICAL CONTRAST CAITY CAITY MATERIAL RADIOLOGI 34955 [facility] C 0 REGIONAL REGIONAL EXAMINATI MEDICAL MEDICAL ON CHEST CIATY CAITY [place] FRONT[place] RADIOLOGI 65521 [facility] C 0 REGIONAL REGIONAL EXAMINATI MEDICAL MEDICAL ON KNEE 3 CAITY CAITY VIEWS BASIC 00559 [facility] METABOLIC 0 REGIONAL REGIONAL PANEL MEDICAL [place] [address] [facility] HEAD/BRAI 0 REGIONAL REGIONAL N W/O MEDICAL [place] [address] [facility] CERVICAL 0 REGIONAL REGIONAL SPINE W/O MEDICAL MEDICAL CONTRAST CAITY CAITY MATERIAL CT PELVIS 79948 [facility] 0 REGIONAL REGIONAL W/CONTRAS MEDICAL MEDICAL T CAITY CAITY MATERIAL CT LUMBAR 58491 [facility] SPINE 0 REGIONAL REGIONAL W/O MEDICAL MEDICAL CONTRAST CAITY CAITY MATERIAL BLOOD 35489 [facility] COUNT 0 [facility] COMPLETE [place]ICAL [place] [address] [facility] ABDOMEN 0 REGIONAL REGIONAL W/CONTRAS MEDICAL MEDICAL T CAITY CAITY MATERIAL CRITICAL 21529 [facility] CARE 0 [facility] ILL/INJUR MEDICAL MEDICAL ED CAITY CAITY PATIENT INIT 30-74 MIN MRI ANY 87392 [facility] Ken WHARTONT LOWER 0 RADIOLOGY MARTINA MARIA W/O CONTRAST MATRL RADIOLOGI 37236 [facility] LUPE HARMON, C C 0 RADIOLOGY N EXAMINATI ON KNEE 3 VIEWS RADIOLOGI 68478 [facility] C 0 [facility] ON KNEE 3 VIEWS ARTHROCEN 19225 SHERYL SAUCEDO TESIS 0 ANI Llamas ASPIR&/IN J MAJOR JT/BURSA W/O US LAPAROSCO 51.23 Amalia Baird CHOLECYST ECTOMY CLOSURE 86.59 Yola [employer] [place] [employer] OUS NEC Encounters Encounter Start End Date Code Location Performer Type Date OFFICE 94935 [facility] HASSAN 7 7 [facility] T VISIT INC 10 MINUTES HOSPITAL EST[facility] - 7 7 [facility] - 7 7 [facility] OUTPATIEN [facility] EMERGENCY 35103 ROXANE RANGEL 7 7 PHYSICIAN DEPARTMEN S, [facility] T VISIT LOW/MODER SEVERITY EMERGENCY 40733 ROXANE GONZALEZ 7 7 PHYSICIAN DEPARTMEN S, [facility] T VISIT HIGH/URGE NT SEVERITY HOSPITAL ESTEVAN - 7 7 [facility] OUTPATIEN [facility] T EMERGENCY 31656 EST[place] 7 7 [facility] DEPARTMEN [facility] T [facility]ISIT LIMITED/M INOR PROB EMERGENCY 24073 EST[place] 6 6 [facility] T VISIT LOW/MODER SEVERITY HOSPITAL [facility] - 6 6 [facility] OUTPATIEN INC T HOSPITAL [facility] 5 5 [facility] OUT[facility]IEN INC T EMERGENCY 19452 EST[facility] 5 5 [facility] T VISIT LIMITED/M INOR PROB EMERGENCY 32809 ESTEVAN 5 5 [facility] T VISIT LIMITED/M INOR PROB EMERGENCY 33445 ROXANE DURAN 5 5 PHYSICIAN U [facility] S, [facility] T VISIT MODERATE SEVERITY HOSPITAL [facility] - 5 5 [facility] OUTPATIEN INC T OFFICE 37878 JEAN PAUL BUX ANJ OUTPATIEN 5 5 MD NELDA, T VISIT [facility] 10 MINUTES OFFICE 29767 EDELMIRA BUX BUX ANJ OUTPATIEN 5 5 MD T VISIT 10 MINUTES HOSPITAL [facility] - 5 5 [facility] OUTPATIEN [facility] T EMERGENCY 61519 [facility] DEPT 5 5 LINUS LINUS VISIT HIGH SEVERITY& THREAT [facility] OFFICE 53284 MADAR BUX BUX ANJ OUTPATIEN 5 5 MD T VISIT 10 MINUTES HOSPITAL [facility] - 5 5 [facility] - 5 5 [facility] OUTPATIEN [facility] T OFFICE 47079 EST[facility] KITCHENPATIOSCAR 5 5 [facility] T VISIT INC 10 MINUTES OFFICE 56703 MADAR BUX BUX ANJ OUTPATIEN 5 5 MD T NEW 30 MINUTES [facility], 4 4 [facility] EMERGENCY 37050 [facility] 4 4 [facility] T VISIT LOW/MODER SEVERITY HOSPITAL [facility] - 4 4 [facility] OUTPATIEN [facility] T HOSPITAL UNIVERSIT - 4 4 [facility] T OFFICE 31801 UNIVERSIT OUTPATIEN 4 4 Y T VISIT 5 HOSPITAL MINUTES OFFICE 28463 [place] [facility] 4 4 MEDICAL AN CAROL T VISIT SERV 15 FOUNDATIO MINUTES [facility] C[facility]AL - 4 4 [facility] UNIVERSIT - 4 4 Y INPATIENT HOSPITAL EMERGENCY 37915 [place] 4 4 IMT IMT DEPARTMEN T VISIT MODERATE SEVERITY Emergency RALPH AGUAYO DO (ER) 4 14:08 4 17:23 [facility] OFFICE 93949 YING HASSAN 3 3 DREW DREW T VISIT 15 MINUTES Emergency RALPH Carrasquillo MD (ER) 3 11:11 3 12:19 [facility] EMERGENCY 94613 [facility] 3 3 [facility] DEPARTMEN INC T VISIT LOW/MODER SEVERITY EMERGENCY 57725 SARWAT BRYSON 3 3 EMERGENCY DEPARTMEN SERVICES T VISIT MODERATE SEVERITY HOSPITAL [facility] - 3 3 [facility] OUTPATIEN INC T Emergency RALPH Rangel MD (ER) 3 02:05 3 03:00 [facility] Inpatient AFSHIN Gonzales (IN) 3 06:55 3 23:15 [facility] EMERGENCY 62403 SAWRAT RANGEL DEPT 3 3 EMERGENCY LINUS VISIT SERVICES HIGH SEVERITY& THREAT [facility] ESTEVAN Gupta 3 [facility] INPATIENT INC OFFICE 92541 YING HASSAN 3 3 DREW DREW T VISIT 15 MINUTES Emergency RALPH Rangel MD (ER) 3 20:22 3 21:12 [facility] EST[facility]AN Douglas 3 3 [facility] OUTPATIEN INC T EMERGENCY 41335 EST[place] 3 3 [facility] T VISIT HIGH/URGE NT SEVERITY HOSPITAL ESTEVAN - 2 2 [facility] EMERGENCY 42310 SARWAT PHILLIPS DEPT 1 1 EMERGENCY VISIT SERVICES HIGH SEVERITY& THREAT [facility] EST[place] - 1 1 [facility] EMERGENCY 22018 SARWAT MATHIS 1 1 [facility] HIGH/URGE NT SEVERITY EMERGENCY 18159 ESTEVAN 1 1 [facility] T VISIT LIMITED/M INOR PROB EMERGENCY 79492 SARWAT RANGEL DEPT 1 1 EMERGENCY LINUS VISIT SERVICES HIGH SEVERITY& THREAT [facility] ESTEVAN - 1 1 [facility] [place] T OFFICE 69728 C AMALIA BAIRD CONSULTAT 1 1 BRIE POWELL MD [facility] NEW/ESTAB PATIENT 60 MIN EMERGENCY 41396 ESTEVAN 1 1 [facility] T VISIT HIGH/URGE NT SEVERITY EMERGENCY 98256 [facility] DEPT 1 1 ANY VISIT EMERGENCY HIGH PHYS SEVERITY& THREAT [facility] [place] - 1 1 [facility] T EMERGENCY 83695 [place] 1 1 [facility] T VISIT HIGH/URGE NT SEVERITY EMERGENCY 73340 SARWAT MCCORD DEPT 1 1 EMERGENCY III МАРИЯ VISIT SERVICES HIGH SEVERITY& THREAT FUN EMERGENCY 99826 ESTEVAN 1 1 [facility] T VISIT LOW/MODER SEVERITY HOSPITAL [facility] - 1 1 [facility] T EMERG[facility] 77720 SARWAT RUIZ 1 1 EMERGENCY DON [facility] SERVICES T VISIT MODERATE SEVERITY [facility] [place] - 1 1 [facility] T EMERGENCY 77019 [place] 1 1 [facility] T VISIT LOW/MODER SEVERITY HOSPITAL [facility] - 1 1 [facility]EN [facility] T EMERGENCY 05690 EST[place] 1 1 [facility] T VISIT MODERATE SEVERITY OFFICE 50496 [facility] ATHELSTANE OUTPATIEN 1 1 DREW DREW T VISIT 15 MINUTES EMERGENCY 83689 SARWAT MCCORD 1 1 EMERGENCY [facility] SERVICES T VISIT HIGH/URGE NT SEVERITY HOSPITAL [place] - 1 1 [facility] 13390 [facility] PETTEY CONSULTAT 1 1 PHYSICIAN JEM MEANS NEW/ESTAB PATIENT 40 MIN EMERGENCY 18162 SARWAT PHILLIPS 1 1 EMERGENCY [facility] SERVICES T VISIT HIGH/URGE NT SEVERITY HOSPITAL [place] - 1 1 [facility] - 0 0 [facility] 0 0 [facility] INPATIENT [facility] [facility] 0 0 [facility] T EMERGENC[facility] 35677 [facility] 0 0 [facility] T VISIT LOW/MODER SEVERITY EMERGENCY 72409 SARWAT MATHIS 0 0 EMERGENCY [facility] SERVICES T VISIT MODERATE SEVERITY OFFICE 17901 [facility] PETTEY CONSULTAT 0 0 PHYSICIAN JEM MEANS NEW/ESTAB PATIENT 60 MIN OFFICE 16277 [facility] OUTPATIEN 0 0 DREW DREW T NEW 30 MINUTES EMERGENCY 70281 [facility] 0 0 [facility] T VISIT LOW/MODER SEVERITY EMERGENCY 18841 SARWAT RANGEL 0 0 EMERGENCY [facility] SERVICES T VISIT MODERATE SEVERITY HOSPITAL [facility] - 0 0 [facility] OUTPATIEN [facility] EMERGENCY 11663 EST[place] 0 0 [facility] T VISIT LOW/MODER [facility]VERITY HOSPITAL [facility] 0 0 [facility] 0 [facility] EMERGENC[facility] 53232 SARWAT MORSE, 0 0 EMERGENCY [facility] SERVICES T VISIT HIGH/URGE ASSOCIATE NT S SEVERITY [facility] ESTEVAN - 0 0 [facility] OFFICE 78488 SHERYL SAUCEDO, OUTPATIEN 0 0 ANI Llamas T VISIT 15 MINUTES [facility] [place] - 0 0 [facility] [place] - 0 0 [facility] T OFFICE 40046 SHERYL SAUCEDO, CONSULTAT 0 0 ANI Llamas ION NEW/ESTAB PATIENT 40 MIN OFFICE 82656 [facility] 7 7 [place] FAMILY SHE T NEW 30 MEDICINE MINUTES P
--- OUTSIDE RECORDS SUMMARY | 2016-08-09 02:29 | External Medical Summary Rpt ---
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 NATALIE EXAMINATI IMAGING ON CHEST ASS SINGLE VIEW FRONTAL RADIOLOGI 23187 ANNY PATRICE C 4 MEDICAL NATALIE EXAMINATI IMAGING ON CHEST ASS SINGLE VIEW FRONTAL GROUND A0425 [facility] MILEAGE 4 AMBULANCE AMBULANCE PER SERVICE SERVICE STATUTE MILE AMB A0427 [facility] SERVICE 4 AMBULANCE AMBULANCE ALS SERVICE SERVICE EMERGENCY TRANSPORT LEVEL 1 SMPL 65106 ESTEVAN BARRETO REPAIR 3 [facility] SCALP/NEC INC INC K/AX/KAVEH T/TRUNK 2.6-7.5CM LEVEL III 40526 [facility] MAR LINUS SURG 3 ZACH & PATHOLOGY MARGIILI GROSS&LINUS ROSCOPIC EXAM HOSPITAL 63562 [facility] DISCHARGE 3 МАРИЯ МАРИЯ DAY MANAGEMEN T 30 MIN/< ANES 95725 COMMUNITY TI INTRAPERI 3 ANESTH MATIAS TONEAL OF THE UPPER BLUE ABDOMEN W/LAPS NOS LAPAROSCO 89141 [facility] PY SURG 3 PHYSICIAN DANIELLE CHOLECYST S GROUP ECTOMY LAPAROSCO 5123 ESTEVAN BARRETO PIC 3 [facility] CHO[facility] INC INC ECTOMY SBSQ 71477 [facility] 3 JR HSIEH МАРИЯ CARE/DAY 25 MINUTES INITIAL 66191 [facility] INPATIENT 3 PHYSICIAN DANIELLE CONSULT S GROUP NEW/ESTAB PT 40 MIN 3D 71134 ANNY PATRICE RENDERING 3 MEDICAL NATALIE IMAGING W/INTERP& ASS POSTPROC DIFF WORK STATION AMBULANCE A0429 [facility] SERVICE 3 AMBULANCE AMBULANCE BLS SERVICE SERVICE EMERGENCY TRANSPORT GROUND A0425 [facility]UL[facility] PER SERVICE SERVICE STATUTE MILE INITIAL 62567 [facility] 3 JR HSIEH МАРИЯ CARE/DAY [address] [place] [address] [place] PATRICE ABDOMEN & 3 MEDICAL NATALIE PELVIS IMAGING W/O ASS CONTRAST MATERIAL ECG 68935 ESTEVAN LOWE JR ROUTINE 3 [facility] W/LEAST P 12 LDS I&R ONLY SIMPLE 50379 ESTEVAN BARRETO REPAIR 3 [facility] F/E/E/N/L INC INC /M 2.6CM-5.0 CM AMBULANCE A0429 [facility] SERVICE 3 AMBULANCE AMBULANCE BLS SERVICE SERVICE EMERGENCY TRANSPORT GROUND A0425 [facility] MILEAGE 3 AMBULANCE AMBULANCE PER SERVICE SERVICE STATUTE MILE RADIOLOGI 58735 [facility] [place] HUMBERTO MAT C 2 RADIOLOGY EXAMINATI ON CHEST SINGLE VIEW FRONTAL OPHTH 86226 [facility] MEDICAL 2 XM&EVAL COMPRE NEW PT 1/> [place] [address] ESTEVAN BARRETO BLOOD/URI 2 [facility] C ACID INC INC COMPREHEN 03511 EST[facility] BARRETO SIVE 2 [facility] METABOLIC INC INC PANEL BLOOD 58399 [facility] BARRETO COUNT 2 [facility] COMPLETE INC INC AUTO&AUTO DIFRNTL WBC SEDIMENTA 55661 ESTEVAN BARRETO TINIRAV RATE 2 [facility] RBC INC INC NON-AUTOM ATED INITIAL 19120 [facility] 1 [facility] CARE/DAY INTERNAL [address] [place] [address] [facility] ABDOMEN & 1 MEDICAL MEDICAL PELVIS IMAGING IMAGING W/CONTRAS ASS ASS T MATERIAL INITIAL 32182 [place] RAMOS NIDHI INPATIENT 1 MEDICAL CONSULT SERV NEW/ESTAB FOUNDATIO PT 80 MIN 3D 44227 [facility] RENDERING 1 MEDICAL MEDICAL IMAGING IMAGING W/INTERP& ASS ASS POSTPROC DIFF WORK STATION 3D 97989 ESTEVAN BARRETO RENDERING 1 [facility] INC INC W/INTERP& POSTPROC DIFF WORK STATION HOSPITAL G0378 EST[facility]AN BARRETO OBSERVATI 1 [facility] [place] [address] EST[facility] BARRETO INFUSION 1 [facility] THERAPY INC INC PROPHYLAX IS/DX EA HOUR RADEX ABD 49724 [facility] BARRETO COMPL 1 [facility] AQT ABD INC INC W/S/E/D VIEWS 1 [place] [address] EST[facility] BARRETO ABDOMINAL 1 [facility] REAL INC INC TIME W/[place] [address] [facility] BARRETO AMYLASE 1 [facility] INC INC CREATINE 82632 EST[facility]AN BARRETO KINASE MB 1 [facility] FRACTION INC INC ONLY COMPREHEN 38806 EST[facility] BARRETO SIVE 1 [facility] [place] [address] ESTEV[facility] BARRE[facility] ABDOMEN & 1 [facility] PELVIS [place] [address] EST[facility] BARRETO INFUSION 1 [facility] THERAPY/P INC INC ROPHYLAXI S /DX 1ST TO 1 HR CREATINE 66362 [facility] BARRETO KINASE 1 [facility] [place] [address] ESTEVAN BARRETO LIPASE 1 [facility] INC INC INITIAL 31809 [place] [facility] OBSERVATI 1 [facility] ON INTERNAL CARE/DAY MED 30 MINUTES BLOOD 68440 [facility] BARRETO COUNT 1 [facility] COMPLETE INC INC AUTO&[place] [address] ESTEVAN BARRETO TROPONIN 1 [facility] QUANTITAT INC INC TONY HEPATITIS 85575 LAB KATIUSKA LAB KATIUSKA C 1 RAMÓN RAMÓN ANTIBODY [facility] ECG 66793 INTERNAL BARILLAS ROUTINE [address] ECG ASSOCIATE W/LEAST S 12 LDS I&R ONLY RADIOLOGI 91980 [facility] [place] NICOLEMANESH C 1 RADIOLOGY SHA EXAMINATI ON CHEST SINGLE VIEW FRONTAL RADIOLOGI 58518 [facility] [place] SANTIAGOE C 1 RADIOLOGY LD A EXAMINATI ON CHEST [place]INGLE [place] PRQ 29418 MANUELITO MONTES TRANSLUMI 1 [facility] CORONARY PSC MECHANICL THROMBECT JULIEN TCAT PLMT 39778 NEW ALCONRAJ 1 [facility] NARY PSC STENT PRQ 1 VESSEL CATH PLMT 03458 NEW RERAVIJ L HRT & 1 [facility] W/NJX & PSC ANGIO IMG S&I ECG 10617 NEW ALEGRIA ROUTINE 1 [facility]INIC W/LEAST PSC 12 L[place] [address] [place] [facility] 1 [facility] K/AX/KAVEH T/TRUNK 2.6-7.5CM THERAPEUT 67924 [facility] 1 [facility] TIC/DX INJECTION SUBQ/[place] [address] ESTEVAN BARRETO HEAD/BRAI 1 [facility] N W/O INC INC CONTRAST MATERIAL CLOSURE 8659 ESTEVAN BARRETO SKIN&SUBC 1 [facility] UTANEOUS INC INC TISSUE OTHER SITES [facility] 99237 SARWAT WEHRMAN REPAIR 1 EMERGENCY III МАРИЯ SCALP/NEC SERVICES K/AX/KAVEH T/TRUNK 2.6-7.5CM 3D 75711 ESTEVAN BARRETO RENDERING 1 [facility] W/INTERP INC INC & POST[place] 3D 88340 ESTEVAN BARRETO RENDERING 1 [facility] W/INTERP INC INC & POSTPROCE SS SUPERVISI ON MRI 93423 ESTEVAN BARRETO SPINAL 1 [facility] CANAL INC INC LUMBAR W/O CONTRAST MATERIAL CT LUMBAR 21256 [place] PATRICE SPINE 1 MEDICAL NATALIE W/O IMAGING CONTRAST ASS MATERIAL RADEX 25355 ESTEVAN BARRETO SPINE 1 [facility] LUMBOSACR INC INC AL MINIMUM 4 VIEWS PUNCTURE 70165 [facility] PETTEY ASPIRATIO 1 PHYSICIAN JAM N ABSCESS S GROUP HEMATOMA BULLA/CYS T KNEE L1830 [facility] ORTHOSIS 1 IMMOBLIZE R CANVAS LONGTUDNL PREFAB RADIOLOGI 55833 [facility] PAT[facility]ICE C 1 MEDICAL NATALIE EXAMINATI IMAGING ON KNEE 3 ASS VIEWS CRTCHS E0114 [facility] UNDARM 1 OTH THAN WOOD PAIR PAD TIP&HNDGR IP MRI 85225 TONY C PATRICE SPINAL 0 PATRICE NATALIE CANAL LUMBAR W/O CONTRAST MATERIAL MRI 44682 TONY C PATRICE SPINAL 0 PATRICE NATALIE CANAL THORACIC W/O CONTRAST MATRL 3D 45848 TONY C PATRICE RENDERING 0 PATRICE NATALIE W/INTERP & [place] [address] ESTEVAN ESTEVAN BLOOD/URI 0 [facility] C ACID INC INC COMPREHEN 20710 [facility] BARRETO SIVE 0 [facility] METABOLIC INC INC PANEL SEDIMENTA 93329 ESTEVAN BARRETO TINIRAV RATE 0 [facility] RBC INC INC NON-AUTOM ATED BLOOD 71366 ESTEVAN YOUNGER COUNT 0 [facility] ADULT DAY COMPLETE INC CTR #2 AUTO&AUTO DIFRNTL WBC LIPID 11773 ESTEVAN BARRETO PANEL 0 [place] [address] ESTEVAN BARRETO THYROID 0 [facility] STIMULATI INC INC NG [facility] 45728 [facility] DISCHARGE 0 [facility] DAY INTERNAL MANAGEMEN MED T 30 MIN/< INCISION 67301 [facility]OTRA JR & 0 VEGA VEGA DRAINAGE ABSCESS COMPLICAT [place] [address] CHIPPS PLATA SURG 0 ZACH & DREW PATHOLOGY MARGIILIKELLY GROSS&LINUS ROSCOPIC EXAM ANES 16060 [facility] INTEG 0 ANESTH EXTREMITI OF THE ES ANT BLUE TRUNK & PERINEUM NOS SBSQ 65476 [facility] CARE/DAY INTERNAL 25 MED MINUTES OTH 8604 ESTEVAN BARRETO INCISION 0 [facility] W/DRAINAG INC INC E SKIN&SUBC UTANEOUS TISSUE INITIAL 34945 [facility] 0 [facility] CARE/DAY INTERNAL 50 MED MINUTES INITIAL 80000 [facility] 0 VEGA VEGA CARE/DAY 70 MINUTES SUSCEPTIB 15442 ESTEVAN BARRETO LTY STDY 0 [facility] ANTIMICRB INC INC IAL MICRO/AGA R DILUTJ CUL BACT 99765 ESTEVAN BARRETO XCPT 0 [facility] URINE INC INC BLOOD/STO OL AEROBIC ISOL CUL BACT 48353 ESTEVAN BARRETO AEROBIC 0 [facility] ADDL INC INC METHS DEFINITIV E EA ISOL INCISION 30443 SARWAT POLKShai BAB & 0 EMERGENCY DRAINAGE SERVICES ABSCESS SIMPLE/SI NGLE OTH 8604 ESTEVAN BARRETO INCISION 0 [facility] W/DRAINAG INC INC E SKIN&SUBC UTANEOUS TISSUE CLOSURE 8659 ESTEVAN BARRETO SKIN&SUBC 0 [facility] UTANEOUS INC INC TISSUE OTHER SITES SIMPLE 41171 SARWAT JUAN CARLOS REPAIR 0 EMERGENCY LINUS SCALP/NEC SERVICES K/AX/KAVEH T/TRUNK 2.5CM/< RADEX 11396 EST[facility] BARRETO HAND 0 [facility] MINIMUM 3 INC INC VIEWS RADEX 13365 ESTEVAN BARRETO RIBS UNI 0 [facility] W/POSTERO INC INC ANT CH MINIM[place] [address] [place] [address] [facility] THORACIC 0 [facility]AL [facility]IONAL SPINE W/O MEDICAL MEDICAL CONTRAST CAITY CAITY MATERIAL RADIOLOGI 83523 [facility] C 0 REG[facility]AL REGIONAL EXAMINATI MEDICAL MEDICAL ON CHEST ACITY CAITY SINGLE VIEW FRONTAL RADIOLOGI 75780 [facility] C 0 REGIONAL REGIONAL EXAMINATI MEDICAL MEDICAL ON KNEE 3 CAITY CAITY VIEWS BASIC 22932 [facility] METABOLIC 0 REG[facility]AL REGIONAL PANEL MEDICAL [place] [address] [facility] HEAD/BRAI 0 REG[facility]AL REGIONAL N W/O MEDICAL [place] [address] [facility] CERVICAL 0 REG[facility]AL REGIONAL SPINE W/O MEDICAL MEDICAL CONTRAST CAITY CAITY MATERIAL CT PELVIS 43519 [facility] 0 REGIONAL REGIONAL W/CONTRAS MEDICAL MEDICAL T CAITY CAITY MATERIAL CT LUMBAR 90537 [facility] SPINE 0 REGIONAL REGIONAL W/O MEDICAL MEDICAL CONTRAST CAITY CAITY MATERIAL BLOOD 82695 [facility] COUNT 0 [facility] COMPLETE [place]ICAL [place] [address] [facility] ABDOMEN 0 REGIONAL REGIONAL W/CONTRAS MEDICAL MEDICAL T CAITY CAITY MATERIAL CRITICAL 85915 [facility] CARE 0 [facility] ILL/INJUR MEDICAL MEDICAL ED CAITY CAITY PATIENT INIT 30-74 MIN MRI ANY 75246 [facility] Ken WHARTONT LOWER 0 RADIOLOGY MARTINA MARIA W/O CONTRAST MATRL RADIOLOGI 83153 [facility] LUPE HARMON, C C 0 RADIOLOGY N EXAMINATI ON KNEE 3 VIEWS RADIOLOGI 76808 [facility] ON KNEE 3 VIEWS ARTHROCEN 68123 SHERYL SAUCEDO TESIS 0 ANI Llamas ASPIR&/IN J MAJOR JT/BURSA W/O US LAPAROSCO 51.23 Amalia Baird CHOLECYST ECTOMY CLOSURE 86.59 Yola BURKETT [employer] [place] SUBCUTANE OUS NEC Encounters Encounter Start End Date Code Location Performer Type Date OFFICE 23515 ESTEV[facility] HASSAN 7 7 [facility] T VISIT INC 10 MINUTES HOSPITAL [facility] - 7 7 [facility] - 7 7 [facility] OUTPATIEN [facility] EMERGENCY 16270 ROXANE RANGEL 7 7 PHYSICIAN DEPARTMEN S, [facility] T VISIT LOW/MODER SEVERITY EMERGENCY 54543 ROXANE GONZALEZ 7 7 PHYSICIAN DEPARTMEN S, [facility] T VISIT HIGH/URGE NT SEVERITY HOSPITAL [facility] - 7 7 [facility] OUTPATIEN [facility] T EMERGENCY 16739 ESTEVAN 7 7 [facility] DEPARTMEN [facility] T VISIT LIMITED/M INOR PROB EMERGENCY 69110 ESTEVAN 6 6 [facility] T VISIT LOW/MODER SEVERITY HOSPITAL EST[facility] - 6 6 [facility] OUTPATIEN INC T HOSPITAL ESTEVAN - 5 5 [facility] OUTPATIEN INC T EMERGENCY 04002 ESTEVAN 5 5 [facility] T VISIT LIMITED/M INOR PROB EMERGENCY 50480 ESTEVAN 5 5 [facility] T VISIT LIMITED/M INOR PROB EMERGENCY 93813 ROXANE DURAN 5 5 PHYSICIAN U [facility] S, [facility] T VISIT MODERATE SEVERITY HOSPITAL ESTEVAN - 5 5 [facility] OUTPATIEN INC T OFFICE 61753 JEAN PAUL BUX ANJ OUTPATIEN 5 5 MD NELDA, T VISIT [facility] 10 MINUTES OFFICE 38147 EDELMIRA BUX BUX ANJ OUTPATIEN 5 5 MD T VISIT 10 MINUTES HOSPITAL [facility] - 5 5 [facility] OUTPATIEN [facility] T EMERGENCY 76328 [facility] DEPT 5 5 LINUS LINUS VISIT HIGH SEVERITY& THREAT [facility] OFFICE 84529 MADAR BUX BUX ANJ OUTPATIEN 5 5 MD T VISIT 10 MINUTES HOSPITAL [facility] - 5 5 [facility] OUTPATIEN [facility] T [facility] - 5 5 [facility] OUTPATIEN [facility] T OFFICE 81443 ESTEVAN KITCHENPATIOSCAR 5 5 MEM H[facility] T VISIT INC 10 MINUTES OFFICE 79974 MADAR BUX BUX ANJ OUTPATIEN 5 5 MD T NEW 30 MINUTES HOME [facility], 4 4 HOME INPATIENT HEALTH AGENCY EMERGENCY 63887 ESTEVAN 4 4 [facility] T VISIT LOW/MODER SEVERITY HOSPITAL EST[facility] - 4 4 [facility] OUTPATIEN [facility] T HOSPITAL UN[facility] - 4 4 [facility] T OFFICE 90426 UNIVERSIT OUTPATIEN 4 4 Y T VISIT 5 HOSPITAL MINUTES OFFICE 88208 [place] OUTPATIEN 4 4 MEDICAL AN CAROL T VISIT SERV 15 FOUNDATIO MINUTES [facility] CARDINAL - 4 4 [place] [facility] UNIVERSIT - 4 4 Y INPATIENT HOSPITAL EMERGENCY 76190 [place] 4 4 IMT IMT DEPARTMEN T VISIT MODERATE SEVERITY Emergency RALPH AGUAYO DO (ER) 4 14:08 4 17:23 [facility] OFFICE 37135 YING HASSAN 3 3 DREW DREW T VISIT 15 MINUTES Emergency RALPH Carrasquillo MD (ER) 3 11:11 3 12:19 [facility] EMERGENCY 93140 EST[facility]AN 3 3 [facility] DEPARTMEN INC T VISIT LOW/MODER SEVERITY EMERGENCY 37485 SARWAT BRYSON 3 3 EMERGENCY DEPARTMEN SERVICES T VISIT MODERATE SEVERITY HOSPITAL EST[facility]AN - 3 3 [facility] OUTPATIEN INC T Emergency RALPH Rangel MD (ER) 3 02:05 3 03:00 [facility] Inpatient AFSHIN Gonzales (IN) 3 06:55 3 23:15 [facility] EMERGENCY 15746 SARWAT RANGEL DEPT 3 3 EMERGENCY LINUS VISIT SERVICES HIGH SEVERITY& THREAT [facility] ESTEVAN Gupta 3 [facility] INPATIENT INC OFFICE 20255 YING HASSAN 3 3 DREW DREW T VISIT 15 MINUTES Emergency RALPH Rangel MD (ER) 3 20:22 3 21:12 [facility] ESTEVAN Douglas 3 3 [facility] OUTPATIEN INC T EMERGENCY 95561 ESTEVAN 3 3 [facility] T VISIT HIGH/URGE NT SEVERITY HOSPITAL ESTEVAN - 2 2 [facility] EMERGENCY 70800 SARWAT PHILLIPS DEPT 1 1 EMERGENCY VISIT SERVICES HIGH SEVERITY& THREAT [facility] HOSPITAL ESTEVAN - 1 1 [facility] EMERGENCY 52555 SARWAT MATHIS 1 [facility] VISIT HIGH/URGE NT SEVERITY EMERGENCY 88053 ESTEVAN 1 1 [facility] T VISIT LIMITED/M INOR PROB EMERGENCY 09030 SARWAT RANGEL DEPT 1 1 EMERGENCY LINUS VISIT SERVICES HIGH SEVERITY& THREAT [facility] ESTEVAN - [address] [facility] T OFFICE 32774 C AMALIA BAIRD CONSULTAT 1 1 BRIE POWELL MD [facility] NEW/ESTAB PATIENT 60 MIN EMERGENCY 07784 ESTEVAN 1 1 [facility] T VISIT HIGH/URGE NT SEVERITY EMERGENCY 79180 [facility] DEPT 1 1 ANY VISIT EMERGENCY HIGH PHYS SEVERITY& THREAT [facility] [place] - 1 1 [facility] EMERGENC[facility] 92740 [place] 1 1 [facility] T VISIT HIGH/URGE NT SEVERITY EMERGENCY 14580 SARWAT MCCORD DEPT 1 1 EMERGENCY III МАРИЯ VISIT SERVICES HIGH SEVERITY& THREAT FUN EMERGENCY 41868 ESTEVAN 1 1 [facility] T VISIT LOW/MODER SEVERITY HOSPITAL EST[facility]AN - 1 1 [facility] T EMERGENCY 10693 SARWAT RUIZ 1 1 EMERGENCY [facility] SERVICES T VISIT MODERATE SEVERITY HOSPITAL [place] - 1 1 [facility] [id number] [place] 1 1 [facility] T VISIT LOW/MODER SEVERITY [facility] [place] - 1 1 [facility] OUTPATIEN [facility] T EMERGENCY 06365 ESTEVAN 1 1 [facility] T VISIT MODERATE SEVERITY OFFICE 79063 [facility] OUTPATIEN 1 1 DREW DREW T VISIT 15 MINUTES EMERGENCY 22264 SARWAT MCCORD 1 1 EMERGENCY [facility] SERVICES T VISIT HIGH/URGE NT SEVERITY HOSPITAL [facility] - 1 1 [facility] T OFFICE 19017 [facility] CON[facility]ULTAT 1 1 PHYSICIAN JEM MEANS NEW/ESTAB PATIENT 40 MIN EMERGENCY 63492 SARWAT PHILLIPS 1 1 EMERGENCY [facility] SERVICES T VISIT HIGH/URGE NT SEVERITY [facility]OSP[facility] [place] - 1 1 [facility] - 0 0 [facility] [place] - 0 0 [facility] INPATIENT [facility] [place] [facility] 0 0 [facility] T EMERGENCY 37135 EST[place]AN 0 0 [facility] T VISIT LOW/MODER SEVERITY EMERGENCY 05531 SARWAT MATHIS 0 0 EMERGENCY [facility] SERVICES T VISIT MODERATE SEVERITY OFFICE 67603 [facility] CONSULTAT 0 0 PHYSICIAN JEM MEANS NEW/ESTAB PATIENT 60 MIN OFFICE 13029 [facility] OUTPATIEN 0 0 DREW DREW T NEW 30 MINUTES EMERGENCY 31961 [place] 0 0 [facility] T VISIT LOW/MODER SEVERITY EMERGENCY 84792 SARWAT RANGEL 0 0 EMERGENCY [facility] SERVICES T VISIT MODERATE [facility]VERITY [facility] [place] - 0 0 [facility] OUTPATIEN [facility] EMERGENCY 28013 EST[place]AN 0 0 [facility] T VISIT LOW/MODER SEVERITY HOSPITAL [place] - 0 0 [facility] P[facility] - 0 0 [facility] T [facility] EMERGENCY 39873 SARWAT MORSE, 0 0 EMERGENCY [facility] SERVICES T VISIT HIGH/URGE ASSOCIATE NT S SEVERITY [facility] ESTEVAN - 0 0 [facility] OFFICE [id number] SHERYL SAUCEDO, OUTPATIEN 0 0 ANI Llamas T VISIT 15 MINUTES [facility] [place] [facility] 0 0 [facility] [place] - 0 0 [facility] OFF[facility] 99848 SHERYL SAUCEDO, CONSULTAT 0 0 ANI Llamas ION NEW/ESTAB PATIENT [address] [facility] 7 7 [place] [facility] SHE T NEW 30 MEDICINE MINUTES P
--- OUTSIDE RECORDS SUMMARY | 2016-08-09 02:37 | External Medical Summary Rpt ---
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 FOUNDATIO MINUTES N SBSQ 19693 [place] [address] MEDICAL ERIC CARE/DAY SERV 25 FOUNDATIO MINUTES N SBSQ 44148 [place] [address] MEDICAL ERIC CARE/DAY SERV 25 FOUNDATIO MINUTES N SBSQ 83272 [place] [address] MEDICAL ERIC CARE/DAY SERV 25 FOUNDATIO MINUTES N SBSQ 59185 [place] [address] MEDICAL ERIC CARE/DAY SERV 25 FOUNDATIO MINUTES N SBSQ 97796 [place] [address] MEDICAL NAN CARE/DAY SERV 25 FOUNDATIO MINUTES N SBSQ 05426 [place] [address] MEDICAL NAN CARE/DAY SERV 25 FOUNDATIO MINUTES N SBSQ 42148 [place] [address] MEDICAL ERIC CARE/DAY SERV 25 FOUNDATIO MINUTES N SBSQ 25458 [place] [address] MEDICAL ERIC CARE/DAY SERV 25 FOUNDATIO MINUTES N SBSQ [address]2846 [place] [address] MEDICAL ERIC CARE/DAY SERV 25 FOUNDATIO MINUTES N SBSQ 19128 [place] [address] MEDICAL ERIC CARE/DAY SERV 25 FOUNDATIO MINUTES N RADEX 74906 [facility] 4 MEDICAL Y JUS COMPLETE SERV FOUNDATIO N SBSQ 13361 [facility] 4 MEDICAL ERIC CARE/DAY SERV 25 FOUNDATIO MINUTES N SBSQ 06018 [place] [address] MEDICAL JACQUELINE CARE/DAY SERV 15 FOUNDATIO MINUTES N SBSQ 11144 [facility] 4 MEDICAL JACQUELINE CARE/DAY SERV 25 FOUNDATIO MINUTES N SBSQ 08693 [place] [address] MEDICAL ERIC CARE/DAY SERV 25 FOUNDATIO MINUTES N SBSQ 08055 [place] [address] MEDICAL NAN CARE/DAY SERV 25 FOUNDATIO MINUTES N SBSQ 45858 [facility] 4 MEDICAL ERIC CARE/DAY SERV 25 FOUNDATIO MINUTES N SBSQ 91631 [facility] 4 MEDICAL ERIC CARE/DAY SERV 25 FOUNDATIO MINUTES N SBSQ 52348 [facility] 4 MEDICAL ERIC CARE/DAY SERV 25 FOUNDATIO MINUTES N SBSQ 41020 [facility] 4 MEDICAL LUZMA CARE/DAY SERV 25 FOUNDATIO MINUTES N INITIAL 99121 [facility] 4 MEDICAL LUZMA CARE/DAY SERV 70 FOUNDATIO MINUTES N RADEX 23039 [facility] [place] MAT ABDOMEN 1 4 RADIOLOGY ANTEROPOS TERIOR VIEW DUP-SCAN 92036 [place] ENDEAN XTR VEINS 4 MEDICAL CAROL COMPLETE SERV FOUNDATIO BILATERAL N [facility] [address] [facility] DISCHARGE 4 MEDICAL CACHORRO DAY SERV MANAGEMEN FOUNDATIO T 30 N MIN/< SBSQ 12164 [facility] 4 NURSE CARE/DAY PRACTITIO 15 NER GR MINUTES RADEX 22735 [place] MONTGOMER ANKLE 4 MEDICAL Y JUS COMPLETE SERV MINIMUM 3 FOUNDATIO VIEWS N RADIOLOGI 35972 [place] TOM C 4 MEDICAL LINUS EXAMINATI SERV ON CHEST FOUNDATIO SINGLE N VIEW FRONTAL CT THORAX 45473 [place] DIAZ W/O 4 MEDICAL LINUS CONTRAST SERV MATERIAL FOUNDATIO N SBSQ 00045 [facility] 4 NURSE CARE/DAY PRACTITIO 25 NER GR MINUTES INITIAL 61937 [place] INPATIENT 4 MEDICAL JACQUELINE CONSULT SERV NEW/ESTAB FOUNDATIO PT 80 N MIN RADIOLOGI 25264 [place] RONI C 4 MEDICAL AYA MAR EXAMINATI SERV ON CHEST FOUNDATIO SINGLE N VIEW FRONTAL RADIOLOGI 70381 [place] JACYK C 4 MEDICAL AYA MAR EXAMINATI SERV ON CHEST FOUNDATIO SINGLE N VIEW FRONTAL RADEX 11289 [place] DISANTIS ESOPHAGUS 4 MEDICAL SHAWN SERV FOUNDATIO N RADIOLOGI 26023 [place] KING ISAIAHS C 4 MEDICAL EXAMINATI SERV ON CHEST FOUNDATIO SINGLE N VIEW FRONTAL RADEX 80933 [place] NURIA BETY SHOULDER 4 MEDICAL COMPLETE SERV MINIMUM 2 FOUNDATIO VIEWS N RADEX 77047 [place] [facility] SCAPULA [address] [place] [address] [place] CHANDLER ANGIOGRAP 4 MEDICAL ADR HY UPPER SERV EXTREMITY FOUNDATIO N RADIOLOGI 89670 [place] ISAIA[facility] C 4 MEDICAL EXAMINATI SERV ON CHE[place] [address] [place] KW[place] K[place] THORACIC 4 MEDICAL SPINE W/O SERV CONTRAST FOUNDATIO MATERIAL N ECG 29631 [place] HA CHI ROUTINE 4 MEDICAL ECG SERV W/LEAST FOUNDATIO 12 LDS N I&R ONLY INSERTION 3404 [place] [address] Y Y [facility] AL CATHETER FOR DRAINAGE ARTERIAL 3891 [place] [address] [place] [address] [place] ABDOMEN & 4 MEDICAL ADR PELVIS SERV W/CONTRAS FOUNDATIO T [place] LUMBAR 82831 [place] SPINE 4 MEDICAL W/[place] [address] [place] ANGIOGRAP 4 MEDICAL HY HEAD SERV W/CONTRAS FOUNDAT[place] T/[place] [address] [place] ANGIOGRAP 4 MEDICAL HY NECK SERV W/CONTRAS FOUNDAT[place] T/[place] [address] [place] ANGIOGRAP 4 MEDICAL ADR HY CHEST SERV W/CONTRAS [place]AT[place] T/[place] [address] [place] CERVICAL 4 MEDICAL SPINE W/O SERV CONTRAST FOUNDATIO MATERIAL N RADIOLOGI 78623 [place] KATELYN JAM C 4 MEDICAL EXAMINATI SERV ON PELVIS FOUNDATIO 1/2 N VIEWS AMB A0427 [facility] SERVICE 4 AMBULANCE AMBULANCE ALS SERVICE SERVICE EMERGENCY TRANSPORT LEVEL 1 [facility] [address] [facility] MARIANO PHYS SVCS 4 Y OF AUTHJ NEVADA DEVIJ HOSPI STANDARD REPRT GROUND A0425 [facility] MILEAGE 4 AMBULANCE AMBULANCE PER SERVICE SERVICE STATUTE MILE RADEX 24495 [place] KATELYN PARISH ABDOMEN 1 4 MEDICAL SERV ANTEROPOS FOUNDATIO TERIOR N VIEW RADIOLOGI 83209 [place] KATELY[place] PARISH C 4 MEDICAL EXAMINATI SERV ON CHEST FOUNDATIO SINGLE N VIEW FRONTAL RADIOLOGI 25376 ANNY PATRICE C 4 MEDICAL NATALIE EXAMINATI IMAGING ON CHEST ASS SINGLE VIEW FRONTAL GROUND A0425 [facility] MILEAGE 4 AMBULANCE AMBULANCE PER SERVICE SERVICE STATUTE MILE AMB A0427 [facility] SERVICE 4 AMBULANCE AMBULANCE ALS SERVICE SERVICE EMERGENCY TRANSPORT LEVEL 1 [facility] 11343 SARWAT LINDSEY ADELAIDE REPAIR 3 EMERGENCY SCALP/NEC SERVICES K/AX/KAVEH T/TRUNK 2.6-7.5CM ANES 53480 [facility] INTRAPERI 3 ANESTH MATIAS TONEAL OF THE UPPER BLUE ABDOMEN W/LAPS NOS LAPAROSCO 12286 [facility] PY SURG 3 PHYSICIAN DANIELLE CHOLECYST S [facility] 92158 [facility] DISCHARGE 3 JR МАРИЯ PAN МАРИЯ DAY MANAGEMEN T 30 MIN/< LEVEL III 79845 [facility] MAR LINUS SURG 3 ZACH & PATHOLOGY MINE GROSS&LINUS ROSCOPIC EXAM LAPAROSCO 5123 ESTEVAN BARRETO PIC 3 [facility] CHOLECYST INC INC ECTOMY SBSQ 72640 [facility] 3 JR МАРИЯ HSIEH CARE/DAY 25 MINUTES 3D 24751 [facility] PATRICE RENDERING 3 MEDICAL NATALIE IMAGING W/INTERP& ASS POSTPROC DIFF WORK STATION INITIAL 48733 [facility] 3 JR МАРИЯ HSIEH CARE/DAY 50 MINUTES GROUND A0425 [facility] AM[facility]UL[place] [address] KENTJENYY PATRICE ABDOMEN & 3 MEDICAL NATALIE PELVIS IMAGING W/O ASS CONTRAST MATERIAL INITIAL 12364 [facility] INPATIENT 3 PHYSICIAN DANIELLE CONSULT S GROUP NEW/ESTAB PT 40 MIN AMBULANCE A0429 [facility] SERVICE 3 AMBULANCE AMBULANCE BLS SERVICE SERVICE EMERGENCY TRANSPORT ECG 76226 ESTEVAN LOWE JR ROUTINE 3 [facility] W/LEAST P 12 LDS I&R ONLY AMBULANCE A0429 XOCHITL [facility] SERVICE 3 AMBULANCE AMBULANCE BLS SERVICE SERVICE EMERGENCY TRANSPORT GROUND A0425 [facility] MILEAGE 3 AMBULANCE AMBULANCE PER SERVICE SERVICE STATUTE MILE SIMPLE 74438 SARWAT RANGEL REPAIR 3 EMERGENCY LINUS F/E/E/N/L SERVICES /M 2.6CM-5.0 CM RADIOLOGI 43055 [facility] [place] MAT C 2 RADIOLOGY EXAMINATI ON CHEST SINGLE VIEW FRONTAL OPHTH 96258 [facility] MEDICAL 2 XM&EVAL COMPRE NEW PT 1/> [place] [address] ESTEVAN BARRETO BLOOD/URI 2 [facility] C ACID INC INC SEDIMENTA 22747 EST[facility] BARRETO TION RATE 2 [facility] RBC INC INC NON-AUTOM ATED BLOOD 08107 [facility] BARRETO COUNT 2 [facility] COMPLETE INC INC AUTO&AUTO DIFRNTL WBC COMPREHEN 98878 [facility] BARRETO SIVE 2 [facility] METABOLIC INC INC PANEL 3D 63363 [facility] RENDERING 1 MEDICAL MEDICAL IMAGING IMAGING W/INTERP& [place] [address] [facility] ABDOMEN & 1 MEDICAL MEDICAL PELVIS IMAGING IMAGING W/CONTRAS ASS ASS T MATERIAL INITIAL 57371 [facility] 1 [facility] CARE/DAY INTERNAL 50 MED MINUTES INITIAL 61203 [facility] INPATIENT 1 VEGA VEGA CONSULT NEW/ESTAB PT 80 MIN COMPREHEN 75379 [facility] BARRETO SIVE 1 [facility] METABOLIC INC INC PANEL HOSPITAL G0378 [facility] BARRETO OBSERVATI 1 [facility] [place] [address] [facility] ABDOMINAL 1 MEDICAL MEDICAL REAL IMAGING IMAGING [place] [address] ESTEVAN BARRETO INFUSION 1 [facility] THERAPY/P INC INC ROPHYLAXI S /DX 1ST TO 1 HR INITIAL 17574 [facility] MAGNO OBSERVATI 1 KASEY HSIEH ON INTERNAL CARE/DAY MED 30 MINUTES 3D 82334 ESTEVAN BARRETO RENDERING 1 [facility] INC INC W/INTERP& [place] [address] [facility]EV[facility] BARRE[facility] INFUSION 1 [facility] THERAPY INC INC PROPHYLAX IS/[place] [address] ESTEAVN BARRETO ABDOMEN & 1 [facility] PELVIS INC INC W/O CONTRAST MATERIAL BLOOD 92847 [facility] BARRETO COUNT 1 [facility] COMPLETE INC INC AUTO&[place] [address] ESTEVAN ESTEVAN TROPONIN 1 [facility] QUANTITAT INC INC TONY CREATINE 37951 EST[facility]AN ESTEVAN KINASE 1 [facility] [place] [address] ESTEVAN BARRETO LIPASE 1 [place] [address] ESTEAVN ESTEVAN AMYLASE 1 [facility] INC INC CREATINE 02368 ESTEVAN ESTEVAN KINASE MB 1 [facility] FRACTION INC INC ONLY RADEX ABD 16830 ESTEVAN ESTEVAN COMPL 1 [facility] AQT ABD INC INC W/S/E/D VIEWS 1 VIEW CH HEPATITIS 66779 LAB KATIUSKA LAB KATIUSKA C 1 RAMÓN RAMÓN ANTIBODY HOLDINGS HOLDINGS ECG 56639 INTERNAL BARILLAS ROUTINE [address] ECG ASSOCIATE W/LEAST S 12 LDS I&R ONLY RADIOLOGI 23987 [facility] [place] RADMANESH C 1 RADIOLOGY SHA EXAMINATI ON CHEST SINGLE VIEW FRONTAL RADIOLOGI 48917 [facility] [place] WESTERFIE C 1 RADIOLOGY LD A EXAMINATI ON CHEST SINGLE VIEW FRONTAL ECG 04061 NEW RAJI ROUTINE 1 [facility] ECG CLINIC W/LEAST PSC 12 LDS I&R ONLY PRQ 52697 MANUELITO MONTES TRANSLUMI 1 [facility] CORONARY PSC MECHANICL THROMBECT JULIEN TCAT PLMT 82464 NEW ALCONRAJ 1 [facility] NARY PSC STENT PRQ 1 VESSEL CATH PLMT 02390 MANUELITO Ennis HRT & 1 [facility] W/NJX & PSC ANGIO IMG S&I [place] [address] BOKEMAL BOSUZYON REPAIR 1 [facility] H[facility]PITAL K/AX/KAVEH T/TRUNK 2.6-7.5CM THERAPEUT 31451 CHRISTIAN BARRAZAON IC 1 [facility] TIC/DX INJECTION SUBQ/IM 3D 55066 NEVADA PATRICE RENDERING 1 MEDICAL NATALIE W/INTERP IMAGING & [place] [address] SARWAT WEHRMAN REPAIR 1 EMERGENCY III МАРИЯ SCALP/NEC SERVICES K/AX/KAVEH T/TRUNK 2.6-7.5CM CLOSURE 8659 ESTEVAN BARRETO SKIN&SUBC 1 [facility] [place]ANEOUS [place] [address] NEVADA PATRICE HEAD/BRAI 1 MEDICAL NATALIE N W/O IMAGING CONTRAST ASS MATERIAL CT LUMBAR 90746 [facility] PATRICE SPINE 1 MEDICAL NATALIE W/O IMAGING CONTRAST ASS MATERIAL MRI 94883 ESTEVAN BARRETO SPINAL 1 [facility] CANAL INC INC LUMBAR W/O CONTRAST MATERIAL 3D 03380 [place] PATRICE RENDERING 1 MEDICAL NATALIE W/INTERP IMAGING & ASS POSTPROCE SS SUPERVISI ON RADEX 13704 [facility] PATRICE SPINE 1 MEDICAL NATALIE LUMBOSACR IMAGING AL ASS MINIMUM 4 VIEWS PUNCTURE 56160 [facility] PETTEY ASPIRATIO 1 PHYSICIAN JAM N ABSCESS S GROUP HEMATOMA BULLA/CYS T RADIOLOGI 99934 [place] PATRICE C 1 MEDICAL NATALIE EXAMINATI IMAGING ON KNEE 3 ASS VIEWS CRTCHS E0114 [facility] UNDARM 1 OTH THAN WOOD PAIR PAD TIP&HNDGR IP KNEE L1830 [facility] ORTHOSIS 1 IMMOBLIZE R CANVAS LONGTUDNL PREFAB 3D 33491 TONY C PATRICE RENDERING 0 PATRICE NATALIE W/INTERP & [place] MRI 50329 TONY C PATRICE SPINAL 0 PATRICE NATALIE CANAL THORACIC W/O CONTRAST MATRL MRI 76430 TONY C PATRICE SPINAL 0 PATRICE NATALIE CANAL LUMBAR W/[place] [address] ESTEVAN BARRETO BLOOD/URI 0 [facility] C ACID INC INC COMPREHEN 30683 [facility] BARRETO SIVE 0 [facility] [place] [address] ESTEVAN BARRETO THYROID 0 [facility] STIMULATI INC INC NG HORMONE TSH SEDIMENTA 76688 ESTEVAN BARRETO TINIRAV RATE 0 [facility] HOSP RBC INC INC NON-AUTOM ATED BLOOD 90062 ESTEVAN YOUNGER COUNT 0 [facility] ADULT DAY COMPLETE INC CTR #2 AUTO&AUTO DIFRNTL WBC LIPID 61647 ESTEVAN BARRETO PANEL 0 [facility] INC INC HOSPITAL 13940 [facility] DISCHARGE 0 [facility] INTERNAL MANAGEMEN MED T 30 MIN/< INCISION 37433 [facility] & 0 VEGA VEGA DRAINAGE ABSCESS COMPLIC[place] [address] CHIPPS PLATA SURG 0 [facility] DREW PATHOLOGY [facility] GROSS&LINUS ROSCOPIC EXAM SBSQ 78510 [facility] 0 [facility]/DAY INTERNAL 25 MED MINUTES ANES 40284 [facility] INTEG 0 ANESTH EXTREMITI OF THE ANT BLUE TRUNK & PERINEUM NOS OTH 8604 ESTEVAN BARRETO INCISION 0 [facility] W/DRAINAG INC INC E SKIN&SUBC UTANEOUS TISSUE INITIAL 03538 [facility] 0 [facility] CARE/DAY INTERNAL 50 MED MINUTES INITIAL 93815 [facility] 0 VEGA VEGA CARE/DAY 70 MINUTES SUSCEPTIB 47074 ESTVEAN BARRETO LTY STDY 0 [facility] ANTIMICRB INC INC IAL MICRO/AGA R DILUTJ INCISION 23124 SARWAT SABA BAB & 0 EMERGENCY DRAINAGE SERVICES ABSCESS SIMPLE/SI NGLE OTH 8604 ESTEVAN BARRETO INCISION 0 [facility] W/DRAINAG INC INC E SKIN&SUBC UTANEOUS TISSUE CUL BACT 14174 ESTEVAN BARRETO XCPT 0 [facility] URINE INC INC BLOOD/STO OL AEROBIC ISOL CUL BACT 40055 ESTEVAN BARRETO AEROBIC 0 [facility] ADDL INC INC METHS DEFINITIV E EA ISOL SIMPLE 32182 SARWAT RANGEL REPAIR 0 EMERGENCY LINUS SCALP/NEC SERVICES K/AX/KAVEH T/TRUNK 2.5CM/< CLOSURE 8659 ESTEVAN BARRETO SKIN&SUBC 0 [facility] UTANEOUS INC INC TISSUE OTHER SITES RADEX 93923 [facility] ANAT HAND 0 MEDICAL XIOMARA MINIMUM 3 IMAGING VIEWS ASS RADEX 51639 [place] PATRICE RIBS UNI 0 MEDICAL NATALIE W/POSTERO IMAGING ANT CH ASS MINIM[place] [address] [place] [address] [facility] REGIONAL REGIONAL SPINE W/O MEDICAL MEDICAL CONTRAST CAITY CAITY MATERIAL BASIC 43529 [facility] METABOLIC 0 REGIONAL REGIONAL PANEL MEDICAL MEDICAL CALCIUM CAITY CAITY TOTAL RADIOLOGI 30658 [facility] C 0 REGIONAL REGIONAL EXAMINATI MEDICAL MEDICAL ON CHEST [place] [address] [facility] HEAD/BRAI 0 REGIONAL REGIONAL N W/O MEDICAL MEDICAL CONTRAST CAITY CAITY MATERIAL RADIOLOGI 64941 [facility] C 0 REGIONAL REGIONAL EXAMINATI MEDICAL MEDICAL ON KNEE [address] [place] [address] [facility] ABDOMEN 0 REGIONAL REGIONAL W/CONTRAS MEDICAL MEDICAL T CIATY CAITY MATERIAL CT LUMBAR 53757 [facility] SPINE 0 REGIONAL REGIONAL W/O MEDICAL MEDICAL CONTRAST CAITY CAITY MATERIAL CT PELVIS 33195 [facility] 0 REGIONAL REGIONAL W/CONTRAS [place] [address] [facility] CERVICAL 0 REGIONAL REGIONAL SPINE W/O MEDICAL MEDICAL CONTRAST CAITY CAITY MATERIAL BLOOD 99817 [facility] COUNT 0 [facility] COMPLETE MEDICAL MEDICAL AUTOMATED CAITY CAITY CRITICAL 79750 [facility] CARE 0 [facility] ILL/INJUR MEDICAL MEDICAL ED CAITY CAITY PATIENT INIT 30-74 MIN MRI ANY [address]01 [facility] [place] LEILA, JT LOWER 0 RADIOLOGY MARTINA Wilma EXTREM W/O CONTRAST MATRL RADIOLOGI 24180 [facility] [place] EDEN, C C 0 RADIOLOGY N EXAMINATI ON KNEE 3 VIEWS RADIOLOGI 82493 [facility] [place] MICHELET, C 0 RADIOLOGY LARA G EXAMINATI ON KNEE 3 VIEWS ARTHROCEN 64148 SHERYL SAUCEDO TESIS 0 ANI [place]lam[place] ASPIR&/IN J MAJOR JT/BURSA W/O US Encounters Encounter Start End Date Code Location Performer Type Date [facility] - 7 7 [facility] OUTPATIEN INC T OFFICE 81089 [facility] HASSAN 7 7 [facility] T VISIT INC 10 MINUTES [facility]OSP[facility] - 7 7 [facility] OUTPATIEN INC T EMERGENCY 67329 ROXANE RANGEL 7 7 PHYSICIAN DEPARTMEN S, [facility] T VISIT LOW/MODER SEVERITY HOSPITAL [facility] - 7 7 [facility] OUTPATIEN INC T EMERGENCY 56254 [facility] 7 7 [facility] DEPARTMEN INC T VISIT LIMITED/M INOR PROB EMERGENCY 43478 ROXANE GONZALEZ 7 7 [facility]/URGE NT SEVERITY [facility]OSP[facility] - 6 6 [facility] OUTPATIEN INC T EMERGENCY 95231 [facility] 6 6 [facility] DEPARTMEN INC T VISIT LOW/MODER SEVERITY EMERGENCY 85940 [facility] 5 5 [facility] DEPARTMEN INC T VISIT LIMITED/M INOR PROB HOSPITAL [facility] - 5 5 [facility] OUTPATIEN INC T EMERGENCY 67335 [facility] 5 5 [facility] V[facility]/M INOR PROB [facility] - 5 5 [facility] OUTPATIEN INC T EMERGENCY 07786 ROXANE DURAN 5 5 PHYSICIAN Ying [facility] S, [facility] T VISIT MODERATE SEVERITY OFFICE 70297 JEAN PAUL BUX ANJ OUTPATIEN 5 5 MD NELDA, T VISIT PSC 10 MINUTES OFFICE 23441 EDELMIRA BUX BUX ANJ OUTPATIEN 5 5 MD T VISIT 10 MINUTES HOSPITAL [facility] - 5 5 [facility] OUTPATIEN INC T EMERGENCY 81640 JUAN CARLOS VANESSAEY DEPT 5 5 LINUS LINUS VISIT HIGH SEVERITY& THREAT [facility] OFFICE 90627 SULTANAAR BUX BUX ANJ OUTPATIEN 5 5 MD T VISIT 10 MINUTES HOSPITAL EST[facility] - 5 5 [facility] OUTPATIEN INC T OFFICE 73912 MADAR BUX BUX ANJ OUTPATIEN 5 5 MD T VISIT 10 MINUTES HOSPITAL EST[facility] - 5 5 [facility] OUTPATIEN INC T OFFICE 75088 EDELMIRA BUX BUX ANJ OUTPATIEN 5 5 MD T NEW 30 MINUTES HOME [facility], 4 4 HOME INPATIENT HEALTH AGENCY EMERGENCY 69011 [facility] 4 4 [facility]ISIT LOW/MODER SEVERITY HOSPITAL EST[facility] - 4 4 [facility] OUTPATIEN INC T OFFICE 99088 [place] [facility] 4 4 MEDICAL AN CAROL T VISIT SERV 15 FOUNDATIO MINUTES N OFFICE 84247 [facility] 4 4 Y T VISIT 5 [facility] - 4 4 Y [facility] 4 [place] [facility] - 4 4 [facility]PATIENT [facility] EMERGENCY 09749 [facility] 4 4 IMT IMT DEPARTMEN T VISIT MODERATE SEVERITY OFFICE 36449 [facility]NAVIDESSILVIA [facility] 3 3 DREW DREW T VISIT 15 MINUTES [facility] - [facility] 3 [facility] OUTPATIEN INC T EMERGENCY 47650 [facility] 3 3 [facility] DEPARTMEN INC T VISIT LOW/MODER SEVERITY EMERGENCY 88758 SARWAT BRYSON 3 3 EMERGENCY DEPARTMEN SERVICES T VISIT MODERATE SEVERITY EMERGENCY 12648 SARW[facility] RANGEL DEPT 3 3 EMERGENCY LINUS VISIT SERVICES HIGH SEVERITY& THREAT FUN [facility]OSP[facility] - 3 3 [facility] INPATIENT INC OFFICE 49078 [facility] 3 DREW DREW T VISIT 15 MINUTES [facility] 3 3 [facility] OUTPATIEN INC T EMERGENCY 50708 SARWAT RANGEL 3 3 EMERGENCY LINUS DEPARTMEN SERVICES T VISIT HIGH/URGE NT SEVERITY [facility] - 2 2 [facility] OUTPATIEN INC T EMERGENCY 52435 SARWAT PHILLIPS DEPT 1 1 EMERGENCY VISIT SERVICES HIGH SEVERITY& THREAT FUNCJ EMERGENCY 77032 SARWAT MATHIS 1 1 EMERGENCY DEPARTMEN SERVICES T VISIT HIGH/URGE NT SEVERITY [facility] - 1 1 [facility] OUTPATIEN INC T EMERGENCY 09723 [facility] 1 1 [facility] DEPARTMEN INC T VISIT LIMITED/M INOR PROB EMERGENCY 38422 SARWAT RANGEL DEPT 1 1 EMERGENCY LINUS VISIT SERVICES HIGH SEVERITY& THREAT FUNCJ EMERGENCY 30888 [facility] 1 1 [facility] DEPARTMEN INC T VISIT HIGH/URGE NT SEVERITY OFFICE 76758 Muriel BAIRD CONSULTAT 1 1 BRIE POWELL MD [facility] NEW/ESTAB PATIENT 60 MIN [facility]OSP[facility] - 1 1 [facility] 90230 [facility] DEPT 1 1 ANY VISIT EMERGENCY HIGH PHYS SEVERITY& THREAT FUN EMERGENCY 81772 [place] 1 1 [facility] T VISIT HIGH/URGE NT SEVERITY [facility]OSPITAL [place] - 1 1 [facility] EMERGENCY 46737 SARWAT MCCORD DEPT 1 1 EMERGENCY III МАРИЯ VISIT SERVICES HIGH SEVERITY& THREAT [facility] 1 [facility] 68100 [facility] 1 1 [facility] T VISIT LOW/MODER SEVERITY EMERGENCY 50331 SARWAT RUIZ 1 1 EMERGENCY DON [facility] SERVICES T VISIT MODERATE SEVERITY EMERGENCY 12498 [place] 1 1 [facility] T VISIT LOW[facility]MODER SEVERITY [facility]OSPITAL [place] - 1 1 [facility] - 1 1 [facility] - 1 1 [facility] 35013 [place] 1 1 [facility] T VISIT MODERATE SEVERITY OFFICE 08088 [facility] 1 1 DREW DREW T VISIT 15 MINUTES EMERGENCY 59546 SARWAT MCCORD 1 1 EMERGENCY III МАРИЯ DEPARTMEN SERVICES T VISIT HIGH/URGE NT SEVERITY OFFICE 58220 [facility] CONSULTAT 1 1 PHYSICIAN JAM ION S GROUP NEW/ESTAB PATIENT 40 MIN [facility] - 1 1 [facility] OUT[facility] INC T EMERGENCY 84376 [facility] 1 1 [facility] DEPARTMEN INC T VISIT HIGH/URGE NT SEVERITY [facility] 0 0 [facility] T [facility] - 0 0 [facility] INPATIENT INC EMERGENCY 86720 [facility] 0 0 [facility] DEPARTMEN INC T VISIT LOW/MODER SEVERITY [facility] - 0 0 [facility] OUTPATIEN INC T EMERGENCY 23865 SARWAT MATHIS 0 0 EMERGENCY DEPARTMEN SERVICES T VISIT MODERATE SEVERITY OFFICE 31354 [facility] PETTE CONSULTAT 0 0 PHYSICIAN JEM ION S GROUP NEW/ESTAB PATIENT 60 MIN OFFICE [id number] Y[facility] HE OUTPATIEN 0 0 [facility] DREW T NEW 30 MINUTES HOSPITAL ESTEVAN - 0 0 [facility] OUTPATIEN INC T EMERGENCY [id number] SARWAT RANGEL 0 0 EMERGENCY [facility] DEPARTMEN SERVICES T VISIT MODERATE SEVERITY EMERGENCY 31623 ESTEVAN 0 0 [facility] DEPARTMEN INC T VISIT LOW/MODER SEVERITY EMERGENCY 66936 ESTEVAN 0 0 [facility] DEPARTMEN INC T VISIT LOW/MODER SEVERITY HOSPITAL ESTEVAN - 0 0 [facility] OUTPATIEN INC T HOSPITAL PÉREZ - 0 0 [facility] OUTPATIEN MEDICAL T [facility] ESTEVAN - 0 0 [facility] OUTPATIEN INC T EMERGENCY 33420 SARWAT MORSE, 0 0 EMERGENCY [facility] DEPARTMEN SERVICES T VISIT HIGH/URGE ASSOCIATE NT S SEVERITY OFFICE 52842 SHERYL SAUCEDO, OUTMORENITA 0 0 ANI Llamas T VISIT 15 MINUTES [facility] T OFFICE [id number] SHERYL SAUCEDO, CONSULTAT 0 0 ANI Llamas ION NEW/ESTAB PATIENT 40 MIN [facility] MONT BELVIEU - 0 0 [facility] T OFFICE 61354 [facility] 7 7 [place] [facility] SHE T MANUELITO 30 MEDICINE MINUTES P
--- OUTSIDE RECORDS SUMMARY | 2016-08-09 02:37 | External Medical Summary Rpt ---
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 INPATIENT 3 PHYSICIAN DANIELLE CONSULT S GROUP NEW/ESTAB PT 40 MIN AMBULANCE A0429 [facility] SERVICE 3 AMBULANCE AMBULANCE BLS SERVICE SERVICE EMERGENCY TRANSPORT ECG 96929 ESTEVAN LOWE JR ROUTINE 3 [facility] W/LEAST P 12 LDS I&R ONLY AMBULANCE A0429 [facility] 3 AMBULANCE AMBULANCE BLS SERVICE SERVICE EMERGENCY TRANSPORT GROUND A0425 [facility] MILEAGE 3 AMBULANCE AMBULANCE PER SERVICE SERVICE STATUTE MILE SIMPLE 11725 SARWAT RANGEL REPAIR 3 EMERGENCY LINUS F/E/E/N/L SERVICES /M 2.6CM-5.0 CM RADIOLOGI 79261 [facility] [place] HUMBERTO MAT C 2 RADIOLOGY EXAMINATI ON CHEST SINGLE VIEW FRONTAL OPHTH 85508 KATZ [facility] MEDICAL 2 XM&EVAL COMPRE NEW PT 1/> [place] [address] ESTEVAN BARRETO BLOOD/URI 2 [facility] C ACID INC INC SEDIMENTA 61505 EST[facility]AN BARRETO TION RATE 2 [facility] RBC INC INC NON-AUTOM ATED BLOOD 77063 EST[facility] BARRETO COUNT 2 [facility] COMPLETE INC INC AUTO&AUTO DIFRNTL WBC COMPREHEN 67583 [facility] BARRETO SIVE 2 [facility] METABOLIC INC INC PANEL 3D 21513 [facility] RENDERING 1 MEDICAL MEDICAL IMAGING IMAGING W/INTERP& [place] [address] [facility] ABDOMEN & 1 MEDICAL MEDICAL PELVIS IMAGING IMAGING W/CONTRAS ASS ASS T MATERIAL INITIAL [address] [facility] 1 [facility] CARE/DAY INTERNAL 50 MED MINUTES INITIAL 25548 [facility] IN[facility]IENT 1 VEGA VEGA CONSULT NEW/ESTAB PT 80 MIN COMPREHEN 28000 [facility] BARRETO SIVE 1 [facility] METABOLIC INC INC PANEL HOSPITAL G0378 [facility] BARRETO OBSERVATI 1 [facility] [place] [address] [facility] ABDOMINAL 1 MEDICAL MEDICAL REAL IMAGING IMAGING [place] [address] EST[facility] BARRETO INFUSION 1 [facility] THERAPY/P INC INC ROPHYLAXI S /DX 1ST TO 1 HR INITIAL 49850 [facility] OBSERVATI 1 KASEY HSIEH ON INTERNAL CARE/DAY MED 30 MINUTES 3D 11607 EST[facility] BARRETO RENDERING 1 [facility] INC INC W/INTERP& [place] DI[place] [address] [facility] BARRETO INFUSION 1 [facility] THERAPY INC INC PROPHYLAX IS/[place] [address] [facility] BARRETO ABDOMEN & 1 [facility] PELVIS INC INC W/O CONTRAST MATERIAL BLOOD 24579 [facility] BARRETO COUNT 1 [facility] COMPLETE INC INC AUTO&[place] [address] ESTEVAN ESTEVAN TROPONIN 1 [facility] QUANTITAT INC INC TONY CREATINE 45239 ESTEVAN ESTEVAN KINASE 1 [facility] [place] [address] ESTEVAN BARRETO LIPASE 1 [place] [address] ESTEVAN ESTEVAN AMYLASE 1 [facility] INC INC CREATINE 08472 ESTEVAN ESTEVAN KINASE MB 1 [facility] FRACTION INC INC ONLY RADEX ABD 87902 ESTEVAN ESTEVAN COMPL 1 [facility] AQT ABD INC INC W/S/E/D VIEWS 1 VIEW CH HEPATITIS 82925 LAB [facility] LAB KATIUSKA C 1 RAMÓN RAMÓN ANTIBODY HOLDINGS HOLDINGS ECG 73133 INTERNAL BARILLAS ROUTINE [address] ECG ASSOCIATE W/LEAST S 12 LDS I&R ONLY RADIOLOGI 92728 [facility] [place] RADMANESH C 1 RADIOLOGY SHA EXAMINATI ON CHEST SINGLE VIEW FRONTAL RADIOLOGI 92900 [facility] [place] WESTERFIE C 1 RADIOLOGY LD A EXAMINATI ON CHEST SINGLE VIEW FRONTAL ECG 19750 NEW RAJI ROUTINE 1 [facility] ECG CLINIC W/LEAST PSC 12 LDS I&R ONLY PRQ 55737 MANUELITO MONTES TRANSLUMI 1 [facility] CORONARY PSC MECHANICL THROMBECT JULIEN TCAT PLMT 81636 NEW ALCONRAJ 1 [place] NARY PSC STENT PRQ 1 VESSEL CATH PLMT 36033 MANUELITO Ennis HRT & 1 [facility] W/NJX & PSC ANGIO IMG S&[place] [address] BOKEMAL BOSUZYON REPAIR 1 [facility] SCALP/NEC HOSPITAL HOSPITAL K/AX/KAVEH T/TRUNK 2.6-7.5CM THERAPEUT 80930 CHRISTIAN BARRAZAON IC 1 [facility] TIC/DX INJECTION SUBQ/IM 3D 99490 [place] PATRICE RENDERING 1 MEDICAL NATALIE W/INTERP IMAGING & [place] [address] SARWAT WEHRMAN REPAIR 1 EMERGENCY III МАРИЯ SCALP/NEC SERVICES K/AX/KAVEH T/TRUNK 2.6-7.5CM CLOSURE 8659 EST[facility]AN BARRETO SKIN&SUBC 1 [facility] HOSP [place]ANE[place] [address] [place] PATRICE HEAD/BRAI 1 MEDICAL NATALIE N W/O IMAGING CONTRAST ASS MATERIAL CT LUMBAR 96341 [place] PATRICE SPINE 1 MEDICAL NATALIE W/O IMAGING CONTRAST ASS MATERIAL MRI 54902 EST[facility] BARRETO SPINAL 1 [facility] HOSP CANAL INC INC LUMBAR W/O CONTRAST MATERIAL 3D 09619 [place] PATRICE RENDERING 1 MEDICAL NATALIE W/INTERP IMAGING & ASS POSTPROCE SS SUPERVISI ON RADEX 30159 [place] PATRICE SPINE 1 MEDICAL NATALIE LUMBOSACR IMAGING AL ASS MINIMUM 4 VIEWS PUNCTURE 13680 [facility] PETTEY ASPIRATIO 1 PHYSICIAN JAM N ABSCESS S GROUP HEMATOMA BULLA/CYS T RADIOLOGI 37052 [place] PATRICE C 1 MEDICAL NATALIE EXAMINATI IMAGING ON KNEE 3 ASS VIEWS CRTCHS E0114 [facility] UNDARM 1 OTH THAN WOOD PAIR PAD TIP&HNDGR IP KNEE L1830 [facility] ORTHOSIS 1 IMMOBLIZE R CANVAS LONGTUDNL PREFAB 3D 47773 TONY C PATRICE RENDERING 0 PATRICE NATALIE W/INTERP & POSTPROCE SS SUPERVISI ON MRI 38858 TONY C PATRICE SPINAL 0 APTRICE NATALIE CANAL THORACIC W/O CONTRAST MATRL MRI 12518 TONY C PATRICE SPINAL 0 PATRICE NATALIE CANAL [place]UM[place] [address] EST[facility] BARRETO BLOOD/URI 0 [facility] C ACID INC INC COMPREHEN 96896 [facility] BARRETO SIVE 0 [facility] [place] [address] ESTEVAN BARRETO THYROID 0 [facility] HOSP STIMULATI INC INC NG HORMONE TSH SEDIMENTA 71027 ESTEVAN BARRETO TINIRAV RATE 0 [facility] HOSP RBC INC INC NON-AUTOM ATED BLOOD 64291 ESTEVAN YOUNGER COUNT 0 [facility] ADULT DAY COMPLETE INC CTR #2 AUTO&AUTO DIFRNTL WBC LIPID 97833 EST[facility] BARRETO PANEL 0 [facility] INC INC HOSPITAL 10847 [facility] DISCHARGE 0 [facility] INTERNAL MANAGEMEN MED T 30 MIN/< INCISION 63969 [facility] & 0 VEGA VEGA DRAINAGE ABSCESS COMPLICAT ED/[place] [address] CHIPPS PLATA SURG 0 [facility] GROSS&LINUS ROSCOPIC EXAM SBSQ 73479 [facility] 0 [facility]/DAY INTERNAL 25 MED MINUTES ANES 92718 [facility] INTEG 0 ANESTH EXTREMITI OF THE ANT BLUE TRUNK & PERINEUM NOS OTH 8604 ESTEVAN BARRETO INCISION 0 [facility] W/DRAINAG INC INC E SKIN&SUBC UTANEOUS TISSUE INITIAL [address] [facility] 0 [facility] CARE/DAY INTERNAL 50 MED MINUTES INITIAL 04976 [facility] 0 VEGA VEGA CARE/DAY 70 MINUTES SUSCEPTIB 17216 ESTEVAN BARRETO LTY STDY 0 [facility] HOSP ANTIMICRB INC INC IAL MICRO/AGA R DILUTJ INCISION 11534 SARWAT SABA BAB & 0 EMERGENCY DRAINAGE SERVICES ABSCESS SIMPLE/SI NGLE OTH 8604 EST[facility] BARRETO INCISION 0 [facility] W/DRAINAG INC INC E SKIN&SUBC UTANEOUS TISSUE CUL BACT 91281 EST[facility] BARRETO XCPT 0 [facility] URINE INC INC BLOOD/STO OL AEROBIC ISOL CUL BACT 17018 EST[facility] BARRETO AEROBIC 0 [facility] ADDL INC INC METHS DEFINITIV E EA ISOL SIMPLE 25990 SARWAT ARNGEL REPAIR 0 EMERGENCY LINUS SCALP/NEC SERVICES K/AX/KAVEH T/TRUNK 2.5CM/< CLOSURE 8659 ESTEVAN BARRETO SKIN&SUBC 0 [facility] UTANEOUS INC INC TISSUE OTHER SITES RADEX 76256 [place] ANAT HAND 0 MEDICAL XIOMARA MINIMUM 3 IMAGING VIEWS ASS RADEX 22405 [place] PATRICE RIBS UNI 0 MEDICAL NATALIE W/POSTERO IMAGING ANT CH ASS MINIM[place] [address] [place] [address] [facility] SPINE W/O MEDICAL MEDICAL CONTRAST CAITY CAITY MATERIAL BASIC 47360 [facility] METABOLIC 0 REGIONAL REGIONAL PANEL MEDICAL MEDICAL CALCIUM CAITY CAITY TOTAL RADIOLOGI 63929 [facility] C 0 REGIONAL REGIONAL EXAMINATI MEDICAL MEDICAL ON CHEST [place] [address] [facility] HEAD/BRAI 0 REGIONAL REGIONAL N W/O MEDICAL MEDICAL CONTRAST CAITY CAITY MATERIAL RADIOLOGI 91197 [facility] C 0 REGIONAL REGIONAL EXAMINATI MEDICAL MEDICAL ON KNEE [address] [place] [address] [facility] ABDOMEN 0 REGIONAL REGIONAL W/CONTRAS MEDICAL MEDICAL T CAITY CAITY MATERIAL CT LUMBAR 15653 [facility] SPINE 0 REGIONAL REGIONAL W/O MEDICAL MEDICAL CONTRAST CAITY CAITY MATERIAL CT PELVIS 74895 [facility] 0 REGIONAL REGIONAL W/CONTRAS [place] [address] [facility] CERVICAL 0 REGIONAL REGIONAL SPINE W/O MEDICAL MEDICAL CONTRAST CAITY CAITY MATERIAL BLOOD 05035 [facility] COUNT 0 [facility] COMPLETE MEDICAL MEDICAL AUTOMATED CAITY CAITY CRITICAL 63897 [facility] CARE 0 [facility] ILL/INJUR MEDICAL MEDICAL ED CAITY CAITY PATIENT INIT 30-74 MIN MRI ANY 25673 [facility] [place] LEILA, JT LOWER 0 RADIOLOGY MARTINA Wilma EXTREM W/O CONTRAST MATRL RADIOLOGI 39726 [facility] [place] EDEN, C C 0 RADIOLOGY N EXAMINATI ON KNEE 3 VIEWS RADIOLOGI 56502 [facility] [place] MICHELET, C 0 RADIOLOGY LARA G EXAMINATI ON KNEE 3 VIEWS ARTHROCEN 88199 SHERYL SAUCEDO TESIS 0 ANI Llamas ASPIR&/IN J MAJOR JT/BURSA W/O US Encounters Encounter Start End Date Code Location Performer Type Date [facility] - 7 7 [facility] OUTPATIEN INC T OFFICE 21039 EST[facility] HASSAN 7 7 [facility] T VISIT INC 10 MINUTES HOSP[facility] - 7 7 [facility] OUTPATIEN INC T EMERGENCY 71105 ROXANE RANGEL 7 7 PHYSICIAN DEPARTMEN S, [facility] T VISIT LOW/MODER SEVERITY HOSPITAL [facility] - 7 7 [facility] OUTPATIEN INC T EMERGENCY 08415 [facility] 7 7 [facility] DEPARTMEN INC T VISIT LIMITED/M INOR PROB EMERGENCY 91083 ROXANE GONZALEZ 7 7 [facility] HIGH/URGE NT SEVERITY HOSPITAL [facility] - 6 6 [facility] OUTPATIEN INC T EMERGENCY 61047 [facility] 6 6 [facility] DEPARTMEN INC T VISIT LOW/MODER SEVERITY EMERGENCY 26164 [facility] 5 5 [facility] DEPARTMEN INC T VISIT LIMITED/M INOR PROB HOSPITAL EST[facility] - 5 5 [facility] OUTPATIEN INC T EMERGENCY 10747 ESTEVAN 5 5 [facility] CAREMEN INC T VISIT LIMITED/M INOR PROB HOSPITAL ESTEVAN - 5 5 [facility] OUTPATIEN INC T EMERGENCY 40260 ROXANE DURAN 5 5 PHYSICIAN Ying [facility] S, [facility] T VISIT MODERATE SEVERITY OFFICE 93253 JEAN PAUL BUX ANJ OUTPATIEN 5 5 MD NELDA, T VISIT PSC 10 MINUTES OFFICE 48911 EDELMIRA BUX BUX ANJ OUTPATIEN 5 5 MD T VISIT 10 MINUTES HOSPITAL EST[facility] - 5 5 [facility] OUTPATIEN INC T EMERGENCY 12590 JUAN CARLOS VANESSAEY DEPT 5 5 LINUS LINUS VISIT HIGH SEVERITY& THREAT [facility] OFFICE 16795 SULTANAAR BUX BUX ANJ OUTPATIEN 5 5 MD T VISIT 10 MINUTES HOSPITAL ESTEVAN - 5 5 [facility] OUTPATIEN INC T OFFICE 85888 MADAR BUX BUX ANJ OUTPATIEN 5 5 MD T VISIT 10 MINUTES HOSPITAL ESTEVAN - 5 5 [facility] OUTPATIEN INC T OFFICE 69722 EDELMIRA BUX BUX ANJ OUTPATIEN 5 5 MD T NEW 30 MINUTES HOME COUNT INCLUDES THE [facility], 4 4 HOME INPATIENT HEALTH AGENCY EMERGENCY 30874 ESTEVAN 4 4 [facility] CAREMEN INC T VISIT LOW/MODER SEVERITY HOSPITAL ESTEVAN - 4 4 [facility] OUTPATIEN INC T OFFICE 50183 [place] MOGHADAM[place] [facility] 4 4 MEDICAL AN CAROL T VISIT SERV 15 FOUNDATIO MINUTES N OFFICE 30145 [facility] 4 4 Y T VISIT 5 HOSPITAL [facility] UN[facility] - 4 4 [facility] 4 [facility] UNIVERSIT - 4 4 INPATIENT HOSPITAL EMERGENCY 04332 [facility] 4 4 IMT IMT DEPARTMEN T VISIT MODERATE SEVERITY OFFICE 18231 YING BENAVIDESSILVIA HASSAN 3 3 DREW DREW T VISIT 15 MINUTES HOSPITAL [facility] - 3 3 [facility] OUTPATIEN INC T EMERGENCY 50021 [facility] 3 3 [facility] DEPARTMEN INC T VISIT LOW/MODER SEVERITY EMERGENCY 83735 SARWAT BRYSON 3 3 EMERGENCY DEPARTMEN SERVICES T VISIT MODERATE SEVERITY EMERGENCY 63175 SARWAT RANGEL DEPT 3 3 EMERGENCY LINUS VISIT SERVICES HIGH SEVERITY& THREAT FUN HOSPITAL EST[facility]AN - 3 3 [facility] INPATIENT INC OFFICE 48107 [facility] 3 3 DREW DREW T VISIT 15 MINUTES HOSPITAL EST[facility] - 3 3 [facility] OUTPATIEN INC T EMERGENCY 57709 SARWAT RANGEL 3 3 EMERGENCY LINUS DEPARTMEN SERVICES T VISIT HIGH/URGE NT SEVERITY HOSPITAL EST[facility] - 2 2 [facility] OUTPATIEN INC T EMERGENCY 28708 SARWAT PHILLIPS DEPT 1 1 EMERGENCY VISIT SERVICES HIGH SEVERITY& THREAT FUNCJ EMERGENCY 37589 SARWAT MATHIS 1 1 EMERGENCY DEPARTMEN SERVICES T VISIT HIGH/URGE NT SEVERITY HOSPITAL EST[facility] - 1 1 [facility] OUTPATIEN INC T EMERGENCY 49120 ESTEVAN 1 1 [facility] DEPARTMEN INC T VISIT LIMITED/M INOR PROB EMERGENCY 10505 SARWAT RANGEL DEPT 1 1 EMERGENCY LINUS VISIT SERVICES HIGH SEVERITY& THREAT FUNCJ EMERGENCY 40275 ESTEVAN 1 1 [facility] DEPARTMEN INC T VISIT HIGH/URGE NT SEVERITY OFFICE 15224 Muriel BAIRD CONSULTAT 1 1 BRIE POWELL MD [facility] NEW/ESTAB PATIENT 60 MIN HOSPITAL ESTEVAN - 1 1 [facility] T EMERGENCY 12685 [facility] DEPT 1 1 ANY VISIT EMERGENCY HIGH PHYS SEVERITY& THREAT FUN EMERGENCY 48378 [place] 1 1 [facility] T VISIT HIGH/URGE NT SEVERITY HOSPITAL [place] - 1 1 [facility] EMERGENCY 47827 SARWAT MCCORD DEPT 1 1 EMERGENCY III МАРИЯ VISIT SERVICES HIGH SEVERITY& THREAT [facility] ESTEVAN - 1 1 [facility] 15892 [facility] 1 1 [facility] T VISIT LOW/MODER SEVERITY EMERGENCY 13993 SARWAT RUIZ 1 1 EMERGENCY [facility] SERVICES T VISIT MODERATE SEVERITY EMERGENCY 92988 [place] 1 1 [facility] T VISIT LOW/MODER SEVERITY HOSPITAL [place] - [address] [facility] ESTEVAN - 1 1 [facility] OUTPATIEN [facility] ESTEVAN - 1 1 [facility] 25601 [facility] 1 1 [facility] T VISIT MODERATE SEVERITY OFFICE 20071 [facility] 1 1 DREW DREW T VISIT 15 MINUTES EMERGENCY 80071 SARWAT MCCORD 1 1 EMERGENCY III МАРИЯ DEPARTMEN SERVICES T VISIT HIGH/URGE NT SEVERITY OFFICE 53501 [facility] PETTEY CONSULTAT 1 1 PHYSICIAN JAM ION S GROUP NEW/ESTAB PATIENT 40 MIN HOSPITAL [facility] - 1 1 [facility] OUTPATIEN INC T EMERGENCY 83246 [facility] 1 1 [facility] DEPARTMEN INC T VISIT HIGH/URGE NT SEVERITY HOSPITAL [facility] - 0 0 [facility] OUTPATIEN INC T [facility]OSPITAL [facility] - 0 0 [facility] INPATIENT INC EMERGENCY 05376 [facility] 0 0 [facility] DEPARTMEN INC T VISIT LOW/MODER SEVERITY HOSPITAL EST[facility] - 0 0 [facility] OUTPATIEN INC T EMERGENCY 64195 SARWAT MATHIS 0 0 EMERGENCY DEPARTMEN SERVICES T VISIT MODERATE SEVERITY OFFICE 51953 [facility] PETTE CONSULTAT 0 0 PHYSICIAN JEM ION S GROUP NEW/ESTAB PATIENT 60 MIN OFFICE 15641 [facility] OUTPATIEN 0 0 [facility] DREW T NEW 30 MINUTES HOSPITAL EST[facility] - 0 0 [facility] OUTPATIEN INC T EMERGENCY 48674 SARWAT RANGEL 0 0 [facility] DEPARTMEN SERVICES T VISIT MODERATE SEVERITY EMERGENCY 55005 EST[facility] 0 0 [facility] DEPARTMEN INC T VISIT LOW/MODER SEVERITY EMERGENCY 66376 [facility] 0 0 [facility] DEPARTMEN INC T VISIT LOW/MODER SEVERITY HOSPITAL EST[facility] - 0 0 [facility] OUTPATIEN INC T HOSPITAL PÉREZ - 0 0 [facility] ESTEVAN - 0 0 [facility] OUTPATIEN INC T EMERGENCY 68753 SARWAT MORSE, 0 0 EMERGENCY [facility] DEPARTMEN SERVICES T VISIT HIGH/URGE ASSOCIATE NT S SEVERITY OFFICE 17491 SHERYL SAUCEDO, OUTMORENITA 0 0 ANI Llamas T VISIT 15 MINUTES [facility] T OFFICE 32020 SHERYL SAUCEDO, CONSULTAT 0 0 ANI Llamas ION NEW/ESTAB PATIENT 40 MIN [facility] - 0 0 [facility] T OFFICE 85341 [facility] 7 7 [place] FAMILY SHE T MANUELITO 30 MEDICINE MINUTES P
--- OUTSIDE RECORDS SUMMARY | 2016-08-09 02:39 | External Medical Summary Rpt ---
Author Author [employer], [employer] Organization [employer] Address Unknown Phone Unavailable Results TROPONIN I Observa Value Referen Units Interpr Notes Date tion ce etation Range Troponi 0.00 0.00 - ng/ml No No Jun 27 n 0.05 informa informa 2015 I.cardi tion in tion in 2:22 AM ac source source [Mass/v data data olume] in Serum or Plasma INITIAL NO No No No No Jun 27 informa informa informa informa 2015 TROPONI tion in tion in tion in tion in 2:22 AM N? source source source source data data data data Microbi ATA No No No No Jun 27 ology H. 0222 informa informa informa informa 2015 studies tion in tion in tion in tion in 2:22 AM (set) 06/27/14 source source source source data data data data 0 - No No No No Jun 27 0.059 informa informa informa informa 2015 ng/ml tion in tion in tion in tion in 2:22 AM (NEGATI source source source source VE) data data data data > 0.059 No No No No Jun 27 ng/ml informa informa informa informa 2014 (POSITI tion in tion in tion in tion in 2:22 AM VE) source source source source data data data data URINALYSIS with CULTURE IF INDICATED Observa Value Referen Units Interpr Notes Date tion ce etation Range Color LT. NL: No No No Jun 27 of YELL Negativ informa informa informa 2015 Urine e tion in tion in tion in 1:09 AM source source source data data data Appeara CLEAR NL: No No No Jun 27 nce of Negativ informa informa informa 2015 Urine e tion in tion in tion in 1:09 AM source source source data data data Glucose NEG NL: No No No Jun 27 Negativ informa informa informa 2014 [Mass/v e tion in tion in tion in 1:09 AM olume] source source source in data data data Urine by Test strip Bilirub NEG NL: No No No Jun 17 in Negativ informa informa informa 2015 [Presen e tion in tion in tion in 1:09 AM ce] in source source source Urine data data data by Test strip Ketones NEG NL: No No No Jun 27 Negativ informa informa informa 2014 [Presen e tion in tion in tion in 1:09 AM ce] in source source source Serum data data data or Plasma Specifi <=1.005 NL: No No No Jun 27 c 1.00 >= informa informa informa 2015 gravity 1.030 tion in tion in tion in 1:09 AM of source source source Urine data data data Hemoglo NEG NL: No No No Jun 27 bin Negativ informa informa informa 2014 [Presen e tion in tion in tion in 1:09 AM ce] in source source source Urine data data data by Test strip pH of 7.0 NL: No No No Jun 27 Urine informa informa informa 2015 by Test tion in tion in tion in 1:09 AM strip source source source data data data Protein NEG NL: No No No Jun 27 Negativ informa informa informa 2015 [Presen e tion in tion in tion in 1:09 AM ce] in source source source Urine data data data by Test strip Urobili 0.2 NL: 0.2 No No No Jun 27 nogen - 1.0 informa informa informa 2014 [Mass/v tion in tion in tion in 1:09 AM olume] source source source in data data data Urine by Test strip Nitrite NEG NL: No No No Jun 27 Negativ informa informa informa 2015 [Presen e tion in tion in tion in 1:09 AM ce] in source source source Urine data data data by Test strip Leukocy NEG NL: No No No Jun 27 rosario Negativ informa informa informa 2014 [#/volu e tion in tion in tion in 1:09 AM me] in source source source Blood data data data by Automat ed count { No No No No Jun 27 MICROSC informa informa informa informa 2015 OPIC tion in tion in tion in tion in 1:09 AM source source source source See data data data data Below Wbc NEGATIV NL: No No No Jun 27 E NEGATIV informa informa informa 2015 E tion in tion in tion in 1:09 AM source source source data data data Rbc NEGATIV NL: No No No Jun 27 E NEGATIV informa informa informa 2015 E tion in tion in tion in 1:09 AM source source source data data data Epi NEGATIV NL: No No No Jun 27 Cells E NEGATIV informa informa informa 2014 E tion in tion in tion in 1:09 AM source source source data data data Bacteri NEGATIV NL: No No No Jun 27 a E NEGATIV informa informa informa 2015 E tion in tion in tion in 1:09 AM source source source data data data Mucous NEGATIV NL: No No No Jun 27 E NEGATIV informa informa informa 2014 E tion in tion in tion in 1:09 AM source source source data data data Yeast NEGATIV NL: No No No Jun 27 E NEGATIV informa informa informa 2014 E tion in tion in tion in 1:09 AM source source source data data data Casts NEGATIV NL: No No No Jun 27 E NEGATIV informa informa informa 2015 E tion in tion in tion in 1:09 AM source source source data data data Crystal NEGATIV NL: No No No Jun 27 s E NEGATIV informa informa informa 2014 E tion in tion in tion in 1:09 AM source source source data data data METH OF CATH No No No No Jun 27 MARILIA I/O informa informa informa informa 2014 tion in tion in tion in tion in 1:09 AM source source source source data data data data CULTURE NOT No No No No Jun 27 SETUP INDIC informa informa informa informa 2015 tion in tion in tion in tion in 1:09 AM source source source source data data data data TROPONIN I Observa Value Referen Units Interpr Notes Date tion ce etation Range Troponi 0.00 0.00 - ng/ml No No Jun 27 n 0.05 informa informa 2015 I.cardi tion in tion in 1:09 AM ac source source [Mass/v data data olume] in Serum or Plasma INITIAL YES No No No No Jun 27 informa informa informa informa 2015 TROPONI tion in tion in tion in tion in 1:09 AM N? source source source source data data data data Microbi ATA No No No No Jun 27 ology H. 0110 informa informa informa informa 2015 studies tion in tion in tion in tion in 1:09 AM (set) 06/27/14 source source source source data data data data 0 - No No No No Jun 27 0.059 informa informa informa informa 2015 ng/ml tion in tion in tion in tion in 1:09 AM (NEGATI source source source source VE) data data data data > 0.059 No No No No Jun 27 ng/ml informa informa informa informa 2014 (POSITI tion in tion in tion in tion in 1:09 AM VE) source source source source data data data data COMPREHENSIVE METABOLIC PANEL CMP Observa Value Referen Units Interpr Notes Date tion ce etation Range Sodium 137 136 - mmol/L No No Jun 27 [Moles/ 145 informa informa 2014 volume] tion in tion in 12:38 in source source AM Serum data data or Plasma COMMENT SPECIME No No No No Jun 27 N informa informa informa informa 2014 MODERAT tion in tion in tion in tion in 12:38 TIM source source source source AM LIPEMIC data data data data Potassi 3.9 3.5 - mmol/L No No Jun 27 um 5.1 informa informa 2014 [Moles/ tion in tion in 12:38 volume] source source AM in data data Serum or Plasma Chlorid 102 98 - mmol/L No No Jun 27 e 107 informa informa 2014 [Moles/ tion in tion in 12:38 volume] source source AM in data data Serum or Plasma TOTAL 25 21 - 32 mmol/L No No Jun 27 CO2 informa informa 2015 tion in tion in 12:38 source source AM data data Anion 14 5 - 15 mmol/L No No Apr 17 gap in informa informa 2015 Serum tion in tion in 12:38 or source source AM Plasma data data Glucose 114 70 - mg/dl No No Jun 17 120 informa informa 2014 [Mass/v tion in tion in 12:38 olume] source source AM in data data Serum or Plasma Urea 14 7 - 18 mg/dl No No Jun 17 nitroge informa informa 2015 n tion in tion in 12:38 [Mass/v source source AM olume] data data in Serum or Plasma Creatin 0.9 0.6 - mg/dl No No Jun 17 ine 1.3 informa informa 2014 [Mass/v tion in tion in 12:38 olume] source source AM in data data Serum or Plasma AGE 49 No yrs No No Jun 17 informa informa informa 2015 tion in tion in tion in 12:38 source source source AM data data data GFR >60 No ml/min No No Jun 17 informa informa informa 2014 tion in tion in tion in 12:38 source source source AM data data data Calcium 8.0 8.5 - mg/dl Low No Jun 17 10.1 informa 2014 [Mass/v tion in 12:38 olume] source AM in data Serum or Plasma Bilirub 0.3 0.2 - mg/dl No No Jun 17 in.tota 1.0 informa informa 2014 l tion in tion in 12:38 [Mass/v source source AM olume] data data in Serum or Plasma Asparta 120 15 - 37 IU/L High No Jun 17 te informa 2014 aminotr tion in 12:38 ansfera source AM se data [Enzyma tic activit y/volum e] in Serum or Plasma Alanine 94 12 - 78 IU/L High No Jun 17 informa 2014 aminotr tion in 12:38 ansfera source AM se data [Enzyma tic activit y/volum e] in Serum or Plasma Alkalin 120 54 - IU/L No No Jun 17 e 369 informa informa 2015 phospha tion in tion in 12:38 tase source source AM [Enzyma data data tic activit y/volum e] in Serum or Plasma Protein 7.7 6.4 - g/dl No No Jun 17 8.2 informa informa 2015 [Mass/v tion in tion in 12:38 olume] source source AM in data data Serum or Plasma Albumin 3.5 3.4 - g/dl No No Jun 27 5.0 informa informa 2014 [Mass/v tion in tion in 12:38 olume] source source AM in data data Serum or Plasma GLOBULI 4.2 1.3 - g/dl High No Jun 27 N 3.5 inform2014 tion in 12:38 source AM data A/G 0.8 1.0 - ratio Low No Jun 27 RATIO 3.9 2014 tion in 12:38 source AM data \BLDo\G No No No No Jun 27 LOMERUL informa informa informa informa 2014 AR tion in tion in tion in tion in 12:38 FILTRAT source source source source AM ION data data data data RATE INTERPR ETATION \BLDx\ Normal No No No No Jun 27 Range: informa informa informa informa 2014 >60 tion in tion in tion in tion in 12:38 Ml/min/ source source source source AM 1.73 sq data data data data meters If No No No No Jun 27 patient informa informa informa informa 2014 is tion in tion in tion in tion in 12:38 source source source source AM data data data data Cindy n, multipl y GFR by 1.120. *GFR No No No No Jun 27 only informa informa informa informa 2014 applies tion in tion in tion in tion in 12:38 to source source source source AM adults data data data data over the age 18. CBC W DIFF AUTOMATED Observa Value Referen Units Interpr Notes Date tion ce etation Range Leukocy 8.8 4.5 - K/uL No No Jun 27 rosario 11.5 informa informa 2014 [#/volu tion in tion in 12:34 me] in source source AM Blood data data by Automat ed count Erythro 5.07 4.60 - M/uL No No Jun 27 cytes 6.00 informa informa 2014 [#/volu tion in tion in 12:34 me] in source source AM Blood data data by Automat ed count Hemoglo 14.3 14.0 - g/dL No No Jun 27 bin 18.0 informa informa 2014 [Mass/v tion in tion in 12:34 olume] source source AM in data data Blood Hematoc 43 40 - 54 % No No Jun 27 rit informa informa 2015 [Volume tion in tion in 12:34 source source AM Fractio data data n] of Blood by Automat ed count Erythro 84.2 80.0 - fL No No Jun 27 cyte 100 informa informa 2015 mean tion in tion in 12:34 corpusc source source AM ular data data volume [Entiti c volume] by Automat ed count Erythro 28.2 26.0 - pg No No Jun 27 cyte 32.0 informa informa 2015 mean tion in tion in 12:34 corpusc source source AM ular data data hemoglo bin [Entiti c mass] by Automat ed count MCHC 33.5 32.0 - g/dL No No Jun 27 36.0 informa informa 2015 tion in tion in 12:34 source source AM data data Erythro 19.6 11.5 - % High No Jun 27 cyte 14.5 informa 2014 distrib tion in 12:34 ution source AM width data [Ratio] by Automat ed count Platele 288 150 - K/uL No No Jun 27 ts 450 informa informa 2014 [#/volu tion in tion in 12:34 me] in source source AM Blood data data by Automat ed count Lymphoc 22.4 18.0 - % No No Jun 27 ytes/10 42.0 informa informa 2015 0 tion in tion in 12:34 leukocy source source AM rosario in data data Blood by Automat ed count Monocyt 10.0 2.0 - % No No Jun 27 es/100 11.0 informa informa 2015 leukocy tion in tion in 12:34 rosario in source source AM Blood data data by Automat ed count Neutrop 63.9 50.0 - % No No Jun 27 [email or web address].ba 70.0 informa informa 2015 nd tion in tion in 12:34 form/10 source source AM 0 data data leukocy rosario in Blood by Manual count Eosinop 3.50 1.00 - % High No Jun 27 hils/10 3.00 informa 2014 0 tion in 12:34 leukocy source AM rosario in data Blood by Automat ed count Basophi 0.20 0.00 - % No No Jun 17 ls/100 2.00 informa informa 2015 leukocy tion in tion in 12:34 rosario in source source AM Blood data data by Automat ed count Lymphoc 1.98 0.60 - K/uL No No Jun 17 ytes/10 3.40 informa informa 2015 0 tion in tion in 12:34 leukocy source source AM rosario in data data Blood by Automat ed count Monocyt 0.88 0.00 - K/uL No No Jun 17 es/100 0.90 informa informa 2015 leukocy tion in tion in 12:34 rosario in source source AM Blood data data by Automat ed count Neutrop 5.65 2.00 - K/uL No No Jun 17 hils.ba 6.90 informa informa 2015 nd tion in tion in 12:34 form/10 source source AM 0 data data leukocy rosario in Blood by Manual count Eosinop 0.31 0.00 - K/uL No No Jun 17 hils/10 0.70 informa informa 2015 0 tion in tion in 12:34 leukocy source source AM rosario in data data Blood by Automat ed count Basophi 0.02 0.00 - K/uL No No Jun 17 ls/100 0.20 informa informa 2015 leukocy tion in tion in 12:34 rosario in source source AM Blood data data by Automat ed count Manual NOT No No No No Jun 27 Diff INDICAT informa informa informa informa 2015 ED tion in tion in tion in tion in 12:34 source source source source AM data data data data
--- OUTSIDE RECORDS SUMMARY | 2016-08-09 02:39 | External Medical Summary Rpt ---
Author Author , Organization [employer] Address Unknown Phone Unavailable Purpose Continuity of Care Document - 12-23-2013 through 2016 Immunization Name Date Route CVX Reacti Commen Provid Is Given on t er Refuse d Tdap, [facility] No Adsorb 2013 ical ed Inform ation - Source Unspec ified
--- OUTSIDE RECORDS SUMMARY | 2016-08-09 02:39 | External Medical Summary Rpt ---
Author Author , Organization [employer] Address Unknown Phone Unavailable Purpose Continuity of Care Document - 12-23-2013 through 2016 Immunization Name Date Route CVX Reacti Commen Provid Is Given on t er Refuse d Tdap, [facility]1 No Adsorb 2013 ical ed Inform ation - Source Unspec ified
[2016-08-09] MEDS ORDERED: ROBAXIN 500 MG500 MG PO (18:52)
[2016-08-09] MEDS ORDERED: NAPROSYN 500MG500 MG PO (18:52)
[2016-08-09] MEDS ORDERED: PREDNISONE 20MG20 MG PO (18:52)
== END 2016-08-02 12:37 | disposition home or self-care (01) ==
LOC: UTC 11:23
DX: M62.830 Muscle spasm of back (principal); G89.29 Other chronic pain; I25.10 Atherosclerotic heart disease of native coronary artery without angina pectoris; Z72.0 Tobacco use